=== PATIENT | female | born 1970 | race Caucasian/White ===

== ENCOUNTER 2017-07-31 03:15 | Emergency (ER) | payer OTHER ==
[~2017-07-31] VITALS: Ht 160 cm; Wt 56.2 kg
[~2017-07-31 03:15] MED LIST: ACET500 PO; ALBU90OI INH; AMIT10 PO; AMIT50 PO; AMLO5 PO; ATOR20 PO; BENZ100A PO; BUSP10 PO; BUSP5 PO; Benicar PO; CITA20 PO; CLON.1 PO; CLON2 PO; CRUTCH4 USE; CYCL10 PO; Colace100 MG PO; DEXGUASY PO; DULO30 PO; ELIQUIS5 MG PO; ESCI10 PO; FETZIMA120 MG PO; Ferrous Sulfat325 M2 PO; GABA300 PO; HYDACE5 PO; HYDCHL12.5 PO; HYDCHL25 PO; HYDCOR1TO TOP; HYDMOR2 PO; HYDPAM25 PO; HYDR-86 PO; IBUP800 PO; Imitrex PO; LAMO100 PO; LAMO25 PO; LOPE2C PO; LORA.5 PO; LORA1 PO; LOSA25 PO; LOXA10 PO; MAGNESIUM OTC PO; MEROPENEM1000 MG; METO50 PO; METO50ER PO; MIRT15 PO; Magnesium Gluc500 MG PO; NAPR500 PO; OLME20 PO; OLME20-12. PO; OMEP40CA12 PO; ONDA4 PO; OTC IRON PO; Omeprazole20 M1 PO; POTCHL20ER PO; PRED20 PO; PREG200 PO; PROBIOTIC1 EAC1 PO; PROM25 PO; PROM25S PR; PROP80ER PO; Prilosec20 MG PO; QUET100 PO; SAPHRIS10 MG SL; SUCR1 PO; SUCR1SU PO; SUMA25 PO; TIZANIDINE HCL2 MG PO; TIZANIDINE HCL4 MG PO; TRAM50 PO; VENL37.5ER PO; VICODIN HP 10-1 EACH PO; WARF2.5 PO; WARF3 PO; WARF5 PO; XARELTO10 MG PO; ZIPR40 PO; ZOLP10 PO; Zanaflex2 M1 PO; Zanaflex4 MG PO; [UNRECOGNIZED DRUG - CODE] PO; [UNRECOGNIZED DRUG - OTHER]; [UNRECOGNIZED DRUG - REMARK]; [UNRECOGNIZED DRUG - REMARK]; [UNRECOGNIZED DRUG - REMARK]
[2017-07-31 04:16] LABS: BASOPHILS ABSOLUTE AUTO 0.04 K/mm3 (0.00-0.23); BASOPHILS PERCENT AUTO 1 % (0-2); EOSINOPHILS ABSOLUTE AUTO 0.11 K/mm3 (0.00-0.68); EOSINOPHILS PERCENT AUTO 1 % (0-6); Hematocrit 33.6 % (33.0-51.0); Hemoglobin 10.9 g/dL (11.5-16.0); IMMATURE GRAN ABSOLUTE AUTO 0.05 K/mm3 (0.00-0.10); IMMATURE GRAN PERCENT AUTO 1 % (0-1); LYMPHOCYTES ABSOLUTE AUTO 2.69 K/mm3 (0.84-5.20); LYMPHOCYTES PERCENT AUTO 33 % (21-46); MONOCYTES ABSOLUTE AUTO 0.58 K/mm3 (0.16-1.47); MONOCYTES PERCENT AUTO 7 % (4-13); Mean Corpuscular HGB 28.1 pg (26.0-34.0); Mean Corpuscular HGB Conc 32.4 g/dL (31.5-36.5); Mean Corpuscular Volume 87 fL (80-100); NEUTROPHILS ABSOLUTE AUTO 4.73 K/mm3 (1.96-9.15); NEUTROPHILS PERCENT AUTO 58 % (41-73); Platelet Count 267 K/mm3 (150-400); RDW Coefficient Variation 17.4 % (11.7-14.2); RDW Standard Deviation 54.7 fL (35.1-46.3); Red Blood Cell Count 3.88 M/mm3 (3.80-5.20)
[2017-07-31 04:44] LABS: Alanine Aminotransfer (ALT/SGP 18 U/L (12-78); Albumin, Blood 3.3 g/dL (3.4-5.0); Albumin/Globulin Ratio 0.8 (0.8-1.8); Alk Phos 136 U/L (50-136); Anion Gap 11 mmol/L (6-16); Aspartate Aminotrans (AST/SGOT 30 U/L (12-37); Bilirubin, Total 0.6 mg/dL (0.1-1.0); Blood Urea Nitrogen 11 mg/dL (8-24); Bun/Creatinine Ratio 17.9 (12.0-20.0); CO2, Blood 23 mmol/L (21-32); Calcium, Blood 8.3 mg/dL (8.5-10.1); Chloride, Blood 108 mmol/L (98-108); Creatinine, Blood 0.62 mg/dL (0.40-1.00); Globulin, Blood 4.3 g/dL (2.2-4.0); Glomerular Filtration Rate >60 (60-); Glucose, Blood 98 mg/dL (70-99); Potassium, Blood 3.8 mmol/L (3.5-5.5); Sodium, Blood 142 mmol/L (136-145); Total Protein, Blood 7.6 g/dL (6.4-8.2); Troponin I <0.015 ng/mL (0.000-0.040)
[2017-11-22] MEDS ORDERED: Doxepin HC10 MG/1 ML PO (11:23)
[2017-12-21] MEDS ORDERED: LOSARTAN POTAS100 MG PO (23:38)
[2017-12-21] MEDS ORDERED: SERT100 PO (23:41)
[2017-12-21] MEDS ORDERED: MAGOXI400 PO (23:41)
[2017-12-21] MEDS ORDERED: Zanaflex4 M1 PO (23:44)
[2017-12-21] MEDS ORDERED: RIZATRIPTAN10 M1 PO (23:46)
[2017-12-21] MEDS ORDERED: DOXE10 PO (23:48)
[2017-12-22] MEDS ORDERED: ELIQUIS5 MG PO (06:59)
== END 2017-07-31 06:10 | disposition home or self-care (01) ==
LOC: ER 03:15
PROVIDERS: Emergency Medicine
DX: I10 Essential (primary) hypertension (principal); R07.9 Chest pain, unspecified; Z79.899 Other long term (current) drug therapy; Z86.711 Personal history of pulmonary embolism; F32.9 Major depressive disorder, single episode, unspecified; F41.9 Anxiety disorder, unspecified; Z98.84 Bariatric surgery status; Z95.0 Presence of cardiac pacemaker; Z98.51 Tubal ligation status
CPT/HCPCS: 36415; 71046; 80053; 83880; 84484; 85025; 93005; 93010; 96374; 96375; 99284; J0360; J2405

== ENCOUNTER 2017-09-07 16:48 | Inpatient (IN) | payer OTHER ==
[~2017-09-07] VITALS: Ht 154.9 cm; Wt 61.4 kg
[2017-09-07 17:22] LABS: BASOPHILS ABSOLUTE AUTO 0.02 K/mm3 (0.00-0.23); BASOPHILS PERCENT AUTO 0 % (0-2); EOSINOPHILS ABSOLUTE AUTO 0.27 K/mm3 (0.00-0.68); EOSINOPHILS PERCENT AUTO 4 % (0-6); Hematocrit 31.5 % (33.0-51.0); Hemoglobin 9.9 g/dL (11.5-16.0); IMMATURE GRAN ABSOLUTE AUTO 0.01 K/mm3 (0.00-0.10); IMMATURE GRAN PERCENT AUTO 0 % (0-1); LYMPHOCYTES ABSOLUTE AUTO 2.58 K/mm3 (0.84-5.20); LYMPHOCYTES PERCENT AUTO 42 % (21-46); MONOCYTES ABSOLUTE AUTO 0.36 K/mm3 (0.16-1.47); MONOCYTES PERCENT AUTO 6 % (4-13); Mean Corpuscular HGB 28.5 pg (26.0-34.0); Mean Corpuscular HGB Conc 31.4 g/dL (31.5-36.5); Mean Corpuscular Volume 91 fL (80-100); Mean Platelet Volume 9.5 fL (9.1-12.4); NEUTROPHILS ABSOLUTE AUTO 2.95 K/mm3 (1.96-9.15); NEUTROPHILS PERCENT AUTO 48 % (41-73); Platelet Count 121 K/mm3 (150-400); RDW Coefficient Variation 18.7 % (11.7-14.2); RDW Standard Deviation 60.9 fL (35.1-46.3); Red Blood Cell Count 3.47 M/mm3 (3.80-5.20); White Blood Cell Count 6.19 K/mm3 (4.00-11.30)
[2017-09-07 17:43] LABS: Ethanol (Alcohol), Blood, Med 277 mg/dL; Salicylate 2.8 mg/dL (2.8-20.0)
[2017-09-07 17:47] LABS: Alanine Aminotransfer (ALT/SGP 25 U/L (12-78); Albumin, Blood 3.1 g/dL (3.4-5.0); Albumin/Globulin Ratio 0.8 (0.8-1.8); Alk Phos 125 U/L (50-136); Anion Gap 12 mmol/L (6-16); Aspartate Aminotrans (AST/SGOT 47 U/L (12-37); Bilirubin, Total 0.3 mg/dL (0.1-1.0); Blood Urea Nitrogen 18 mg/dL (8-24); CO2, Blood 19 mmol/L (21-32); Calcium, Blood 7.7 mg/dL (8.5-10.1); Chloride, Blood 110 mmol/L (98-108); Creatinine, Blood 0.78 mg/dL (0.40-1.00); Globulin, Blood 3.9 g/dL (2.2-4.0); Glomerular Filtration Rate >60 (60-); Glucose, Blood 143 mg/dL (70-99); Potassium, Blood 3.7 mmol/L (3.5-5.5); Sodium, Blood 141 mmol/L (136-145)
[2017-09-07 17:52] LABS: Acetaminophen, Random <2.0 ug/mL (10.0-30.0)
[2017-09-07 18:16] LABS: Source, Urine Catheter
[2017-09-07 18:19] LABS: Bilirubin, Urine Neg (Neg); Blood, Urine Neg (Neg); Glucose Qualitative, Urine Neg (Neg); Ketones, Urine 1+ (Neg); Leukocyte Esterase, Urine Neg (Neg); Nitrite, Urine Neg (Neg); Protein, Urine 1+ (Neg); Urobilinogen, Urine NORM (Normal); pH, Urine 6.5 (5.0-8.0)
[2017-09-07 18:27] LABS: Appearance, Urine Clear (Clear); Color, Urine Yellow (P-Yellow)
[2017-09-07 18:41] LABS: U Amphetamine Screen Not Detected; U Barbituate Screen Not Detected; U Benzodiazapine Screen Not Detected; U Buprenorphine Screen Not Detected; U Cannabinoids Screen Not Detected; U Cocaine Screen Not Detected; U Methadone Screen Not Detected; U Methamphetamine Screen Not Detected; U Opiates Screen Not Detected; U Oxycodone Screen Not Detected; U Phencyclidine Screen Not Detected; U Propoxyphene Screen Not Detected
[2017-09-07 18:56] LABS: Troponin I <0.015 ng/mL (0.000-0.040)
[2017-09-07 20:55] LABS: Alanine Aminotransfer (ALT/SGP 21 U/L (12-78); Albumin, Blood 2.9 g/dL (3.4-5.0); Albumin/Globulin Ratio 0.8 (0.8-1.8); Alk Phos 121 U/L (50-136); Anion Gap 13 mmol/L (6-16); Aspartate Aminotrans (AST/SGOT 41 U/L (12-37); Bilirubin, Total 0.3 mg/dL (0.1-1.0); Blood Urea Nitrogen 16 mg/dL (8-24); Bun/Creatinine Ratio 23.7 (12.0-20.0); CO2, Blood 17 mmol/L (21-32); Calcium, Blood 7.4 mg/dL (8.5-10.1); Chloride, Blood 112 mmol/L (98-108); Creatinine, Blood 0.68 mg/dL (0.40-1.00); Globulin, Blood 3.7 g/dL (2.2-4.0); Glomerular Filtration Rate >60 (60-); Glucose, Blood 132 mg/dL (70-99); Magnesium, Blood 1.8 mg/dL (1.6-2.4); Phosphorus, Blood 2.8 mg/dL (2.5-4.9); Potassium, Blood 3.7 mmol/L (3.5-5.5); Salicylate 2.4 mg/dL (2.8-20.0); Sodium, Blood 142 mmol/L (136-145); Total Protein, Blood 6.6 g/dL (6.4-8.2)
[2017-09-07 20:59] LABS: Acetaminophen, Random <2.0 ug/mL (10.0-30.0)
[2017-09-08 04:22] LABS: BASOPHILS ABSOLUTE AUTO 0.02 K/mm3 (0.00-0.23); BASOPHILS PERCENT AUTO 0 % (0-2); EOSINOPHILS ABSOLUTE AUTO 0.17 K/mm3 (0.00-0.68); EOSINOPHILS PERCENT AUTO 3 % (0-6); Hematocrit 26.3 % (33.0-51.0); Hemoglobin 8.3 g/dL (11.5-16.0); IMMATURE GRAN ABSOLUTE AUTO 0.01 K/mm3 (0.00-0.10); IMMATURE GRAN PERCENT AUTO 0 % (0-1); LYMPHOCYTES ABSOLUTE AUTO 1.68 K/mm3 (0.84-5.20); LYMPHOCYTES PERCENT AUTO 34 % (21-46); MONOCYTES ABSOLUTE AUTO 0.35 K/mm3 (0.16-1.47); MONOCYTES PERCENT AUTO 7 % (4-13); Mean Corpuscular HGB 28.9 pg (26.0-34.0); Mean Corpuscular HGB Conc 31.6 g/dL (31.5-36.5); Mean Corpuscular Volume 92 fL (80-100); Mean Platelet Volume 9.5 fL (9.1-12.4); NEUTROPHILS PERCENT AUTO 55 % (41-73); Platelet Count 88 K/mm3 (150-400); RDW Coefficient Variation 18.6 % (11.7-14.2); RDW Standard Deviation 62.1 fL (35.1-46.3); Red Blood Cell Count 2.87 M/mm3 (3.80-5.20); White Blood Cell Count 4.93 K/mm3 (4.00-11.30)
[2017-09-08 04:38] LABS: Magnesium, Blood 1.7 mg/dL (1.6-2.4); Phosphorus, Blood 2.6 mg/dL (2.5-4.9)
[2017-09-08 19:22] LABS: Alanine Aminotransfer (ALT/SGP 20 U/L (12-78); Albumin, Blood 3.2 g/dL (3.4-5.0); Albumin/Globulin Ratio 0.9 (0.8-1.8); Alk Phos 125 U/L (50-136); Anion Gap 10 mmol/L (6-16); Aspartate Aminotrans (AST/SGOT 33 U/L (12-37); Bilirubin, Total 0.6 mg/dL (0.1-1.0); Blood Urea Nitrogen 15 mg/dL (8-24); Bun/Creatinine Ratio 24.1 (12.0-20.0); CO2, Blood 18 mmol/L (21-32); Calcium, Blood 8.4 mg/dL (8.5-10.1); Chloride, Blood 109 mmol/L (98-108); Creatinine, Blood 0.62 mg/dL (0.40-1.00); Globulin, Blood 3.7 g/dL (2.2-4.0); Glomerular Filtration Rate >60 (60-); Glucose, Blood 135 mg/dL (70-99); Potassium, Blood 3.6 mmol/L (3.5-5.5); Sodium, Blood 137 mmol/L (136-145); Total Protein, Blood 6.9 g/dL (6.4-8.2)
[2017-09-09 06:01] LABS: BASOPHILS ABSOLUTE AUTO 0.02 K/mm3 (0.00-0.23); BASOPHILS PERCENT AUTO 1 % (0-2); EOSINOPHILS ABSOLUTE AUTO 0.12 K/mm3 (0.00-0.68); EOSINOPHILS PERCENT AUTO 4 % (0-6); Hematocrit 31.9 % (33.0-51.0); IMMATURE GRAN ABSOLUTE AUTO 0.01 K/mm3 (0.00-0.10); IMMATURE GRAN PERCENT AUTO 0 % (0-1); LYMPHOCYTES ABSOLUTE AUTO 1.43 K/mm3 (0.84-5.20); LYMPHOCYTES PERCENT AUTO 50 % (21-46); MONOCYTES ABSOLUTE AUTO 0.28 K/mm3 (0.16-1.47); MONOCYTES PERCENT AUTO 10 % (4-13); Mean Corpuscular HGB 28.6 pg (26.0-34.0); Mean Corpuscular HGB Conc 31.3 g/dL (31.5-36.5); Mean Corpuscular Volume 91 fL (80-100); Mean Platelet Volume 10.2 fL (9.1-12.4); NEUTROPHILS ABSOLUTE AUTO 0.99 K/mm3 (1.96-9.15); NEUTROPHILS PERCENT AUTO 35 % (41-73); Platelet Count 88 K/mm3 (150-400); RDW Coefficient Variation 18.9 % (11.7-14.2); RDW Standard Deviation 62.8 fL (35.1-46.3); White Blood Cell Count 2.85 K/mm3 (4.00-11.30)
[2017-09-09 06:19] LABS: Magnesium, Blood 1.8 mg/dL (1.6-2.4); Phosphorus, Blood 2.8 mg/dL (2.5-4.9)
[2017-09-09] MEDS ORDERED: SERT50 PO (13:29)
[2017-11-22] MEDS ORDERED: Doxepin HC10 MG/1 ML PO (11:23)
[2017-12-21] MEDS ORDERED: LOSARTAN POTAS100 MG PO (23:38)
[2017-12-21] MEDS ORDERED: SERT100 PO (23:41)
[2017-12-21] MEDS ORDERED: MAGOXI400 PO (23:41)
[2017-12-21] MEDS ORDERED: Zanaflex4 M1 PO (23:44)
[2017-12-21] MEDS ORDERED: RIZATRIPTAN10 M1 PO (23:46)
[2017-12-21] MEDS ORDERED: DOXE10 PO (23:48)
[2017-12-22] MEDS ORDERED: ELIQUIS5 MG PO (06:59)
== END 2017-09-09 13:35 | disposition home or self-care (01) | DRG 917 ==
LOC: ER 16:48 → ICUW 18:39 → MEDS 18:39 → ICUE 20:21 → MEDS 09-08 13:26
PROVIDERS: Emergency Medicine; Family Medicine
PROC: 3E0234Z Introduction of Serum, Toxoid and Vaccine into Muscle, Percutaneous Approach (ICD-10-PCS; principal; 2017-09-08)
DX: T42.8X2A Poisoning by antiparkinsonism drugs and other central muscle-tone depressants, intentional self-harm, initial encounter (principal); G92 Toxic encephalopathy; D68.2 Hereditary deficiency of other clotting factors; T46.5X2A Poisoning by other antihypertensive drugs, intentional self-harm, initial encounter; Z23 Encounter for immunization; T51.0X2A Toxic effect of ethanol, intentional self-harm, initial encounter; Z86.711 Personal history of pulmonary embolism; F43.10 Post-traumatic stress disorder, unspecified; F32.9 Major depressive disorder, single episode, unspecified; I10 Essential (primary) hypertension; M54.9 Dorsalgia, unspecified; G89.29 Other chronic pain; D64.9 Anemia, unspecified
CPT/HCPCS: 36415; 51702; 71045; 80053; 81025; 82947; 83735; 84100; 84443; 84484; 85025; 93005; 93010; 96361; 96374; 99285; G0480; J0360; J2310; J2405; J7030; P9612; Q2038

== ENCOUNTER 2017-10-03 20:59 | Observation (INO) | payer OTHER ==
[~2017-10-03] VITALS: Ht 160 cm; Wt 59.0 kg
[~2017-10-03 20:59] MED LIST changes: +SERT50 PO
[2017-10-03 21:34] LABS: BASOPHILS ABSOLUTE AUTO 0.02 K/mm3 (0.00-0.23); BASOPHILS PERCENT AUTO 0 % (0-2); EOSINOPHILS ABSOLUTE AUTO 0.04 K/mm3 (0.00-0.68); EOSINOPHILS PERCENT AUTO 1 % (0-6); Hematocrit 36.1 % (33.0-51.0); Hemoglobin 11.5 g/dL (11.5-16.0); IMMATURE GRAN ABSOLUTE AUTO 0.01 K/mm3 (0.00-0.10); IMMATURE GRAN PERCENT AUTO 0 % (0-1); LYMPHOCYTES ABSOLUTE AUTO 1.98 K/mm3 (0.84-5.20); LYMPHOCYTES PERCENT AUTO 43 % (21-46); MONOCYTES PERCENT AUTO 4 % (4-13); Mean Corpuscular HGB 28.4 pg (26.0-34.0); Mean Corpuscular HGB Conc 31.9 g/dL (31.5-36.5); Mean Corpuscular Volume 89 fL (80-100); Mean Platelet Volume 9.1 fL (9.1-12.4); NEUTROPHILS ABSOLUTE AUTO 2.36 K/mm3 (1.96-9.15); NEUTROPHILS PERCENT AUTO 51 % (41-73); Platelet Count 85 K/mm3 (150-400); RDW Coefficient Variation 18.4 % (11.7-14.2); RDW Standard Deviation 59.2 fL (35.1-46.3); Red Blood Cell Count 4.05 M/mm3 (3.80-5.20); White Blood Cell Count 4.61 K/mm3 (4.00-11.30)
[2017-10-03 21:51] LABS: Alanine Aminotransfer (ALT/SGP 35 U/L (12-78); Albumin, Blood 3.8 g/dL (3.4-5.0); Albumin/Globulin Ratio 0.8 (0.8-1.8); Alk Phos 162 U/L (50-136); Anion Gap 11 mmol/L (6-16); Aspartate Aminotrans (AST/SGOT 59 U/L (12-37); Bilirubin, Total 0.2 mg/dL (0.1-1.0); Blood Urea Nitrogen 9 mg/dL (8-24); Bun/Creatinine Ratio 15.2 (12.0-20.0); CO2, Blood 24 mmol/L (21-32); Calcium, Blood 8.2 mg/dL (8.5-10.1); Chloride, Blood 114 mmol/L (98-108); Creatinine, Blood 0.59 mg/dL (0.40-1.00); Globulin, Blood 4.5 g/dL (2.2-4.0); Glomerular Filtration Rate >60 (60-); Glucose, Blood 97 mg/dL (70-99); Potassium, Blood 3.1 mmol/L (3.5-5.5); Salicylate 3.8 mg/dL (2.8-20.0); Sodium, Blood 149 mmol/L (136-145); Total Protein, Blood 8.3 g/dL (6.4-8.2)
[2017-10-03 22:06] LABS: Acetaminophen, Random <2.0 ug/mL (10.0-30.0); Ethanol (Alcohol), Blood, Med 343 mg/dL
[2017-10-04 02:25] LABS: Source, Urine Clean Catch
[2017-10-04 02:30] LABS: Bilirubin, Urine Neg (Neg); Blood, Urine Neg (Neg); Glucose Qualitative, Urine Neg (Neg); Ketones, Urine Neg (Neg); Leukocyte Esterase, Urine Neg (Neg); Nitrite, Urine Neg (Neg); Protein, Urine 1+ (Neg); Urobilinogen, Urine NORM (Normal)
[2017-10-04 02:36] LABS: Amorphous Light (0-Heavy); Appearance, Urine Hazy (Clear); Bacteria Many /hpf; Color, Urine Yellow (P-Yellow); Mucus Light (0-Heavy); Red Blood Cells, Urine Not Seen /hpf (0-2); Squamous Epithelial Cells Mod /hpf (Few)
[2017-10-04 02:56] LABS: U Amphetamine Screen Not Detected; U Barbituate Screen Not Detected; U Benzodiazapine Screen Not Detected; U Buprenorphine Screen Not Detected; U Cannabinoids Screen Not Detected; U Cocaine Screen Not Detected; U Methadone Screen Not Detected; U Methamphetamine Screen Not Detected; U Opiates Screen Not Detected; U Oxycodone Screen Not Detected; U Phencyclidine Screen Not Detected; U Propoxyphene Screen Not Detected
== END 2017-10-04 09:40 | disposition home or self-care (01) ==
LOC: ER 20:59 → EOR 21:00
PROVIDERS: Emergency Medicine
DX: T14.91XA Suicide attempt, initial encounter (principal); F10.129 Alcohol abuse with intoxication, unspecified; F32.9 Major depressive disorder, single episode, unspecified; Z79.899 Other long term (current) drug therapy; Y90.8 Blood alcohol level of 240 mg/100 ml or more
CPT/HCPCS: 36415; 80053; 81001; 81025; 84443; 85025; 87086; 93005; 93010; 99285; G0378; G0480; Q3014

== ENCOUNTER 2017-11-22 10:40 | Emergency (ER) | payer OTHER ==
[~2017-11-22] VITALS: Ht 162.6 cm; Wt 56.7 kg
[2017-11-22] MEDS ORDERED: SILENOR3 MG PO (11:23)
[2017-11-22] MEDS ORDERED: QUETIAPINE FUM200 MG PO (11:24)
[2017-11-22] MEDS ORDERED: TIZANIDINE HCL2 MG PO (11:24)
[2017-11-22] MEDS ORDERED: Primalev 10-301 EACH (11:25)
== END 2017-11-22 13:10 | disposition home or self-care (01) ==
LOC: ER 10:40
DX: S01.01XA Laceration without foreign body of scalp, initial encounter (principal); W22.8XXA Striking against or struck by other objects, initial encounter; G43.909 Migraine, unspecified, not intractable, without status migrainosus; F43.10 Post-traumatic stress disorder, unspecified; F32.9 Major depressive disorder, single episode, unspecified; F41.9 Anxiety disorder, unspecified; I10 Essential (primary) hypertension; Z86.73 Personal history of transient ischemic attack (TIA), and cerebral infarction without residual deficits; Z79.899 Other long term (current) drug therapy; Z79.891 Long term (current) use of opiate analgesic
CPT/HCPCS: 12001; 70450; 90471; 90714; 99284

== ENCOUNTER 2017-11-26 22:19 | Observation (INO) | payer OTHER ==
[~2017-11-26] VITALS: Ht 162.6 cm; Wt 57.1 kg
[~2017-11-26 22:19] MED LIST changes: +Primalev 10-301 EACH; +QUETIAPINE FUM200 MG PO; +SILENOR3 MG PO
[2017-11-26 23:08] LABS: Source, Urine Voided
[2017-11-26 23:19] LABS: Bilirubin, Urine Neg (Neg); Blood, Urine 1+ (Neg); Glucose Qualitative, Urine Neg (Neg); Ketones, Urine Neg (Neg); Leukocyte Esterase, Urine Neg (Neg); Nitrite, Urine Neg (Neg); Protein, Urine Neg (Neg); Specific Gravity, Urine 1.005 (1.003-1.022); Urobilinogen, Urine NORM (Normal)
[2017-11-26 23:21] LABS: BASOPHILS ABSOLUTE AUTO 0.05 K/mm3 (0.00-0.23); BASOPHILS PERCENT AUTO 1 % (0-2); EOSINOPHILS ABSOLUTE AUTO 0.05 K/mm3 (0.00-0.68); EOSINOPHILS PERCENT AUTO 1 % (0-6); Hematocrit 32.8 % (33.0-51.0); Hemoglobin 10.7 g/dL (11.5-16.0); IMMATURE GRAN ABSOLUTE AUTO 0.01 K/mm3 (0.00-0.10); IMMATURE GRAN PERCENT AUTO 0 % (0-1); LYMPHOCYTES ABSOLUTE AUTO 2.08 K/mm3 (0.84-5.20); LYMPHOCYTES PERCENT AUTO 36 % (21-46); MONOCYTES ABSOLUTE AUTO 0.57 K/mm3 (0.16-1.47); MONOCYTES PERCENT AUTO 10 % (4-13); Mean Corpuscular HGB 29.3 pg (26.0-34.0); Mean Corpuscular HGB Conc 32.6 g/dL (31.5-36.5); Mean Corpuscular Volume 90 fL (80-100); Mean Platelet Volume 9.1 fL (9.1-12.4); NEUTROPHILS ABSOLUTE AUTO 3.03 K/mm3 (1.96-9.15); NEUTROPHILS PERCENT AUTO 52 % (41-73); Platelet Count 190 K/mm3 (150-400); RDW Coefficient Variation 19.2 % (11.7-14.2); RDW Standard Deviation 63.5 fL (35.1-46.3); Red Blood Cell Count 3.65 M/mm3 (3.80-5.20); White Blood Cell Count 5.79 K/mm3 (4.00-11.30)
[2017-11-26 23:23] LABS: Appearance, Urine Clear (Clear); Color, Urine Yellow (P-Yellow)
[2017-11-26 23:24] LABS: Bacteria Not Seen /hpf; Red Blood Cells, Urine 0-2 /hpf (0-2); Squamous Epithelial Cells Not Seen /hpf (Few); White Blood Cells, Urine 0-2 /hpf (0-5)
[2017-11-26 23:29] LABS: U Amphetamine Screen Not Detected; U Barbituate Screen Not Detected; U Benzodiazapine Screen Not Detected; U Buprenorphine Screen Not Detected; U Cannabinoids Screen Not Detected; U Cocaine Screen Not Detected; U Methadone Screen Not Detected; U Methamphetamine Screen Not Detected; U Opiates Screen Not Detected; U Oxycodone Screen Not Detected; U Phencyclidine Screen Not Detected; U Propoxyphene Screen Not Detected
[2017-11-26 23:46] LABS: Alanine Aminotransfer (ALT/SGP 22 U/L (12-78); Albumin, Blood 3.4 g/dL (3.4-5.0); Albumin/Globulin Ratio 0.8 (0.8-1.8); Alk Phos 115 U/L (50-136); Anion Gap 8 mmol/L (6-16); Aspartate Aminotrans (AST/SGOT 33 U/L (12-37); Bilirubin, Total 0.2 mg/dL (0.1-1.0); Blood Urea Nitrogen 3 mg/dL (8-24); Bun/Creatinine Ratio 4.4 (12.0-20.0); CO2, Blood 26 mmol/L (21-32); Calcium, Blood 8.4 mg/dL (8.5-10.1); Chloride, Blood 113 mmol/L (98-108); Creatinine, Blood 0.68 mg/dL (0.40-1.00); Ethanol (Alcohol), Blood, Med 298 mg/dL; Globulin, Blood 4.1 g/dL (2.2-4.0); Glomerular Filtration Rate >60 (60-); Glucose, Blood 124 mg/dL (70-99); Salicylate 2.1 mg/dL (2.8-20.0); Sodium, Blood 147 mmol/L (136-145); Total Protein, Blood 7.5 g/dL (6.4-8.2)
[2017-11-26 23:47] LABS: Acetaminophen, Random <2.0 ug/mL (10.0-30.0)
== END 2017-11-27 01:24 | disposition left against medical advice (07) ==
LOC: ER 22:19 → EOR 22:20
PROVIDERS: Emergency Medicine
DX: S51.812A Laceration without foreign body of left forearm, initial encounter (principal); F10.129 Alcohol abuse with intoxication, unspecified; E87.6 Hypokalemia; F32.9 Major depressive disorder, single episode, unspecified; I10 Essential (primary) hypertension; F43.10 Post-traumatic stress disorder, unspecified; F41.9 Anxiety disorder, unspecified; Z86.711 Personal history of pulmonary embolism; Z79.899 Other long term (current) drug therapy; Z86.73 Personal history of transient ischemic attack (TIA), and cerebral infarction without residual deficits; X78.1XXA Intentional self-harm by knife, initial encounter; Y90.8 Blood alcohol level of 240 mg/100 ml or more
CPT/HCPCS: 80053; 81001; 81025; 84443; 85025; G0480

== ENCOUNTER 2017-12-02 09:31 | Inpatient (IN) | payer OTHER ==
[~2017-12-02] VITALS: Ht 160 cm; Wt 59.0 kg
[~2017-12-02 09:31] MED LIST changes: +Doxepin HC10 MG/1 ML PO; -SILENOR3 MG PO
[2017-12-02 10:13] LABS: BASOPHILS ABSOLUTE AUTO 0.03 K/mm3 (0.00-0.23); BASOPHILS PERCENT AUTO 0 % (0-2); EOSINOPHILS ABSOLUTE AUTO 0.01 K/mm3 (0.00-0.68); EOSINOPHILS PERCENT AUTO 0 % (0-6); Hematocrit 31.5 % (33.0-51.0); Hemoglobin 10.2 g/dL (11.5-16.0); IMMATURE GRAN ABSOLUTE AUTO 0.04 K/mm3 (0.00-0.10); IMMATURE GRAN PERCENT AUTO 1 % (0-1); LYMPHOCYTES ABSOLUTE AUTO 0.91 K/mm3 (0.84-5.20); LYMPHOCYTES PERCENT AUTO 11 % (21-46); MONOCYTES PERCENT AUTO 5 % (4-13); Mean Corpuscular HGB 29.2 pg (26.0-34.0); Mean Corpuscular HGB Conc 32.4 g/dL (31.5-36.5); Mean Corpuscular Volume 90 fL (80-100); Mean Platelet Volume 10.2 fL (9.1-12.4); NEUTROPHILS ABSOLUTE AUTO 6.91 K/mm3 (1.96-9.15); NEUTROPHILS PERCENT AUTO 83 % (41-73); Platelet Count 106 K/mm3 (150-400); RDW Standard Deviation 59.9 fL (35.1-46.3); Red Blood Cell Count 3.49 M/mm3 (3.80-5.20)
[2017-12-02 10:24] LABS: International Normalized Ratio 1.21; Prothrombin Time Results 12.7 Sec (9.7-11.5)
[2017-12-02 10:27] LABS: Alanine Aminotransfer (ALT/SGP 51 U/L (12-78); Albumin/Globulin Ratio 0.8 (0.8-1.8); Alk Phos 148 U/L (50-136); Anion Gap 10 mmol/L (6-16); Aspartate Aminotrans (AST/SGOT 71 U/L (12-37); Bilirubin, Total 0.5 mg/dL (0.1-1.0); Blood Urea Nitrogen 17 mg/dL (8-24); Bun/Creatinine Ratio 26.4 (12.0-20.0); CO2, Blood 26 mmol/L (21-32); Calcium, Blood 7.8 mg/dL (8.5-10.1); Chloride, Blood 102 mmol/L (98-108); Creatinine, Blood 0.64 mg/dL (0.40-1.00); Ethanol (Alcohol), Blood, Med <3 mg/dL; Globulin, Blood 3.7 g/dL (2.2-4.0); Glomerular Filtration Rate >60 (60-); Glucose, Blood 121 mg/dL (70-99); Potassium, Blood 3.1 mmol/L (3.5-5.5); Sodium, Blood 138 mmol/L (136-145); Total Protein, Blood 6.7 g/dL (6.4-8.2); Troponin I <0.015 ng/mL (0.000-0.040)
[2017-12-02 10:41] LABS: Blood, Urine 1+ (Neg); Glucose Qualitative, Urine Neg (Neg); Ketones, Urine 1+ (Neg); Leukocyte Esterase, Urine 1+ (Neg); Nitrite, Urine Neg (Neg); Protein, Urine 3+ (Neg); Specific Gravity, Urine 1.025 (1.003-1.022); Urobilinogen, Urine 1+ (Normal)
[2017-12-02 10:50] LABS: Appearance, Urine Cloudy (Clear); Bilirubin, Urine 1+ (Neg); Color, Urine Yellow (P-Yellow)
[2017-12-02 10:52] LABS: Granular Casts Rare /lpf (0)
[2017-12-02 10:53] LABS: Bacteria Mod /hpf; Hyaline Casts 0-2 /lpf (0-2); Mucus Mod (0-Heavy); Squamous Epithelial Cells Many /hpf (Few)
[2017-12-02 10:54] LABS: Red Blood Cells, Urine 0-2 /hpf (0-2)
[2017-12-02 13:07] LABS: C-Reactive Protein, High Sens. 47.4 mg/L (0.000-3.000)
[2017-12-03 04:50] LABS: BASOPHILS ABSOLUTE AUTO 0.01 K/mm3 (0.00-0.23); BASOPHILS PERCENT AUTO 0 % (0-2); EOSINOPHILS ABSOLUTE AUTO 0.01 K/mm3 (0.00-0.68); EOSINOPHILS PERCENT AUTO 0 % (0-6); Hematocrit 31.5 % (33.0-51.0); Hemoglobin 10.2 g/dL (11.5-16.0); IMMATURE GRAN ABSOLUTE AUTO 0.07 K/mm3 (0.00-0.10); IMMATURE GRAN PERCENT AUTO 1 % (0-1); LYMPHOCYTES ABSOLUTE AUTO 1.17 K/mm3 (0.84-5.20); LYMPHOCYTES PERCENT AUTO 9 % (21-46); MONOCYTES ABSOLUTE AUTO 0.38 K/mm3 (0.16-1.47); MONOCYTES PERCENT AUTO 3 % (4-13); Mean Corpuscular HGB 28.6 pg (26.0-34.0); Mean Corpuscular HGB Conc 32.4 g/dL (31.5-36.5); Mean Corpuscular Volume 88 fL (80-100); Mean Platelet Volume 10.3 fL (9.1-12.4); NEUTROPHILS ABSOLUTE AUTO 10.76 K/mm3 (1.96-9.15); NEUTROPHILS PERCENT AUTO 87 % (41-73); Platelet Count 77 K/mm3 (150-400); RDW Coefficient Variation 18.2 % (11.7-14.2); RDW Standard Deviation 58.6 fL (35.1-46.3); Red Blood Cell Count 3.57 M/mm3 (3.80-5.20)
[2017-12-03 05:12] LABS: Amylase, Blood 302 U/L (25-115); Magnesium, Blood 2.1 mg/dL (1.6-2.4)
[2017-12-03 05:20] LABS: BAND PERCENT MAN 11 % (0-8); BASOPHILS PERCENT MAN 0 % (0-2); EOSINOPHILS PERCENT MAN 0 % (0-6); LYMPHOCYTES ABSOLUTE MAN 1.11 K/mm3 (0.84-5.20); LYMPHOCYTES PERCENT MAN 9 % (21-46); MONOCYTES ABSOLUTE MAN 0.37 K/mm3 (0.16-1.47); MONOCYTES PERCENT MAN 3 % (4-13); NEUTROPHILS ABSOLUTE MAN 10.91 K/mm3 (1.96-9.15); SEG NEUTROPHILS PERCENT MAN 77 % (41-73); TOTAL CELLS COUNTED 100
[2017-12-03 05:25] LABS: Alanine Aminotransfer (ALT/SGP 33 U/L (12-78); Albumin, Blood 2.6 g/dL (3.4-5.0); Albumin/Globulin Ratio 0.7 (0.8-1.8); Alk Phos 124 U/L (50-136); Anion Gap 9 mmol/L (6-16); Aspartate Aminotrans (AST/SGOT 42 U/L (12-37); Bilirubin, Total 0.5 mg/dL (0.1-1.0); Blood Urea Nitrogen 12 mg/dL (8-24); Bun/Creatinine Ratio 19.7 (12.0-20.0); CO2, Blood 25 mmol/L (21-32); Chloride, Blood 103 mmol/L (98-108); Creatinine, Blood 0.61 mg/dL (0.40-1.00); Globulin, Blood 3.7 g/dL (2.2-4.0); Glomerular Filtration Rate >60 (60-); Glucose, Blood 85 mg/dL (70-99); Phosphorus, Blood 2.3 mg/dL (2.5-4.9); Potassium, Blood 3.3 mmol/L (3.5-5.5); Sodium, Blood 137 mmol/L (136-145); Total Protein, Blood 6.3 g/dL (6.4-8.2); Triglycerides 62 mg/dL (30-160)
[2017-12-03 06:01] LABS: Source, Urine Clean Catch
[2017-12-03 06:04] LABS: Bilirubin, Urine Neg (Neg); Blood, Urine 1+ (Neg); Glucose Qualitative, Urine Neg (Neg); Ketones, Urine Neg (Neg); Leukocyte Esterase, Urine Neg (Neg); Nitrite, Urine Neg (Neg); Protein, Urine 2+ (Neg); Specific Gravity, Urine 1.015 (1.003-1.022); Urobilinogen, Urine NORM (Normal)
[2017-12-03 06:16] LABS: Appearance, Urine Clear (Clear); Color, Urine Yellow (P-Yellow)
[2017-12-03 06:20] LABS: Bacteria Not Seen /hpf; Red Blood Cells, Urine 0-2 /hpf (0-2); Squamous Epithelial Cells Many /hpf (Few)
[2017-12-04 05:03] LABS: BASOPHILS ABSOLUTE AUTO 0.01 K/mm3 (0.00-0.23); BASOPHILS PERCENT AUTO 0 % (0-2); EOSINOPHILS ABSOLUTE AUTO 0.14 K/mm3 (0.00-0.68); EOSINOPHILS PERCENT AUTO 2 % (0-6); Hematocrit 26.6 % (33.0-51.0); Hemoglobin 8.6 g/dL (11.5-16.0); IMMATURE GRAN ABSOLUTE AUTO 0.01 K/mm3 (0.00-0.10); IMMATURE GRAN PERCENT AUTO 0 % (0-1); LYMPHOCYTES ABSOLUTE AUTO 1.25 K/mm3 (0.84-5.20); LYMPHOCYTES PERCENT AUTO 18 % (21-46); MONOCYTES ABSOLUTE AUTO 0.23 K/mm3 (0.16-1.47); MONOCYTES PERCENT AUTO 3 % (4-13); Mean Corpuscular HGB 29.4 pg (26.0-34.0); Mean Corpuscular HGB Conc 32.3 g/dL (31.5-36.5); Mean Platelet Volume 10.3 fL (9.1-12.4); NEUTROPHILS ABSOLUTE AUTO 5.36 K/mm3 (1.96-9.15); NEUTROPHILS PERCENT AUTO 77 % (41-73); Platelet Count 63 K/mm3 (150-400); RDW Coefficient Variation 18.3 % (11.7-14.2); Red Blood Cell Count 2.93 M/mm3 (3.80-5.20)
[2017-12-04 05:13] LABS: Mean Corpuscular Volume 91 fL (80-100)
[2017-12-04 05:24] LABS: Anion Gap 6 mmol/L (6-16); Blood Urea Nitrogen 9 mg/dL (8-24); Bun/Creatinine Ratio 18.3 (12.0-20.0); CO2, Blood 26 mmol/L (21-32); Calcium, Blood 7.8 mg/dL (8.5-10.1); Chloride, Blood 107 mmol/L (98-108); Creatinine, Blood 0.49 mg/dL (0.40-1.00); Glomerular Filtration Rate >60 (60-); Glucose, Blood 90 mg/dL (70-99); Phosphorus, Blood 1.6 mg/dL (2.5-4.9); Potassium, Blood 3.3 mmol/L (3.5-5.5); Sodium, Blood 139 mmol/L (136-145)
[2017-12-05 05:07] LABS: Hematocrit 24.9 % (33.0-51.0); Hemoglobin 7.8 g/dL (11.5-16.0); Mean Corpuscular HGB 28.7 pg (26.0-34.0); Mean Corpuscular HGB Conc 31.3 g/dL (31.5-36.5); Mean Corpuscular Volume 92 fL (80-100); Platelet Count 52 K/mm3 (150-400); RDW Coefficient Variation 18.8 % (11.7-14.2); RDW Standard Deviation 62.7 fL (35.1-46.3); Red Blood Cell Count 2.72 M/mm3 (3.80-5.20); White Blood Cell Count 3.21 K/mm3 (4.00-11.30)
[2017-12-05] MEDS ORDERED: METO5A PO (14:03)
== END 2017-12-05 13:20 | disposition home or self-care (01) | DRG 439 ==
LOC: ER 09:31 → MEDS 12:21
PROVIDERS: Emergency Medicine; Family Medicine; Internal Medicine
DX: K85.20 Alcohol induced acute pancreatitis without necrosis or infection (principal); F33.3 Major depressive disorder, recurrent, severe with psychotic symptoms; D68.51 Activated protein C resistance; Z98.84 Bariatric surgery status; Z86.711 Personal history of pulmonary embolism; E87.6 Hypokalemia; E83.42 Hypomagnesemia; E83.51 Hypocalcemia; J44.9 Chronic obstructive pulmonary disease, unspecified; F43.10 Post-traumatic stress disorder, unspecified; D63.8 Anemia in other chronic diseases classified elsewhere; D69.6 Thrombocytopenia, unspecified; F10.10 Alcohol abuse, uncomplicated; E83.39 Other disorders of phosphorus metabolism; Z86.718 Personal history of other venous thrombosis and embolism
CPT/HCPCS: 36415; 74018; 74022; 76700; 76705; 80048; 80053; 81001; 82150; 82330; 83690; 83735; 84100; 84478; 84484; 85025; 85027; 85610; 86141; 87086; 93005; 93010; 93970; 96365; 96366; 96367; 96368; 96375; 96376; 99285; C9113; G0480; J0360; J0780; J2185; J3010; J3411; J3475; J7030; J7042; J7060

== ENCOUNTER 2017-12-19 14:16 | Emergency (ER) | payer OTHER ==
[~2017-12-19] VITALS: Ht 160 cm; Wt 54.4 kg
[~2017-12-19 14:16] MED LIST changes: +METO5A PO
[2017-12-19] MEDS ORDERED: CHLO25 PO (15:18)
[2017-12-19] MEDS ORDERED: DOXE10 PO (22:58)
[2017-12-21] MEDS ORDERED: LOSARTAN POTAS100 MG PO (23:38)
[2017-12-21] MEDS ORDERED: SERT100 PO (23:41)
[2017-12-21] MEDS ORDERED: MAGOXI400 PO (23:41)
[2017-12-21] MEDS ORDERED: Zanaflex4 M1 PO (23:44)
[2017-12-21] MEDS ORDERED: RIZATRIPTAN10 M1 PO (23:46)
[2017-12-21] MEDS ORDERED: DOXE10 PO (23:48)
[2017-12-22] MEDS ORDERED: ELIQUIS5 MG PO (06:59)
== END 2017-12-19 15:33 | disposition home or self-care (01) ==
LOC: ER 14:16
DX: F10.10 Alcohol abuse, uncomplicated (principal); F32.9 Major depressive disorder, single episode, unspecified; F41.9 Anxiety disorder, unspecified; I10 Essential (primary) hypertension; Z79.899 Other long term (current) drug therapy
CPT/HCPCS: 99283

== ENCOUNTER 2017-12-19 19:12 | Observation (INO) | payer OTHER ==
[~2017-12-19] VITALS: Ht 160 cm; Wt 54.4 kg
[~2017-12-19 19:12] MED LIST changes: +CHLO25 PO
[2017-12-19 20:17] LABS: Source, Urine Voided
[2017-12-19 20:21] LABS: BASOPHILS ABSOLUTE AUTO 0.05 K/mm3 (0.00-0.23); BASOPHILS PERCENT AUTO 1 % (0-2); EOSINOPHILS ABSOLUTE AUTO 0.02 K/mm3 (0.00-0.68); EOSINOPHILS PERCENT AUTO 0 % (0-6); Hematocrit 37.8 % (33.0-51.0); Hemoglobin 11.9 g/dL (11.5-16.0); IMMATURE GRAN ABSOLUTE AUTO 0.01 K/mm3 (0.00-0.10); IMMATURE GRAN PERCENT AUTO 0 % (0-1); LYMPHOCYTES ABSOLUTE AUTO 2.32 K/mm3 (0.84-5.20); LYMPHOCYTES PERCENT AUTO 47 % (21-46); MONOCYTES ABSOLUTE AUTO 0.59 K/mm3 (0.16-1.47); MONOCYTES PERCENT AUTO 12 % (4-13); Mean Corpuscular HGB 28.4 pg (26.0-34.0); Mean Corpuscular HGB Conc 31.5 g/dL (31.5-36.5); Mean Corpuscular Volume 90 fL (80-100); Mean Platelet Volume 8.5 fL (9.1-12.4); NEUTROPHILS ABSOLUTE AUTO 1.96 K/mm3 (1.96-9.15); NEUTROPHILS PERCENT AUTO 40 % (41-73); Platelet Count 246 K/mm3 (150-400); RDW Coefficient Variation 19.6 % (11.7-14.2); RDW Standard Deviation 65.5 fL (35.1-46.3); Red Blood Cell Count 4.19 M/mm3 (3.80-5.20); White Blood Cell Count 4.95 K/mm3 (4.00-11.30)
[2017-12-19 20:22] LABS: Bilirubin, Urine Neg (Neg); Blood, Urine Neg (Neg); Glucose Qualitative, Urine Neg (Neg); Ketones, Urine Neg (Neg); Leukocyte Esterase, Urine Neg (Neg); Nitrite, Urine Neg (Neg); Protein, Urine Neg (Neg); Urobilinogen, Urine NORM (Normal)
[2017-12-19 20:26] LABS: Appearance, Urine Clear (Clear); Color, Urine Yellow (P-Yellow)
[2017-12-19 20:37] LABS: U Amphetamine Screen Not Detected; U Barbituate Screen Not Detected; U Benzodiazapine Screen Not Detected; U Buprenorphine Screen Not Detected; U Cannabinoids Screen Not Detected; U Cocaine Screen Not Detected; U Methadone Screen Not Detected; U Methamphetamine Screen Not Detected; U Opiates Screen Not Detected; U Oxycodone Screen Not Detected; U Phencyclidine Screen Not Detected; U Propoxyphene Screen Not Detected
[2017-12-19 20:44] LABS: Alanine Aminotransfer (ALT/SGP 74 U/L (12-78); Albumin, Blood 3.1 g/dL (3.4-5.0); Albumin/Globulin Ratio 0.6 (0.8-1.8); Alk Phos 176 U/L (50-136); Anion Gap 13 mmol/L (6-16); Aspartate Aminotrans (AST/SGOT 51 U/L (12-37); Bilirubin, Total 0.3 mg/dL (0.1-1.0); Blood Urea Nitrogen 5 mg/dL (8-24); Bun/Creatinine Ratio 6.8 (12.0-20.0); CO2, Blood 26 mmol/L (21-32); Calcium, Blood 8.6 mg/dL (8.5-10.1); Chloride, Blood 109 mmol/L (98-108); Creatinine, Blood 0.74 mg/dL (0.40-1.00); Globulin, Blood 4.8 g/dL (2.2-4.0); Glomerular Filtration Rate >60 (60-); Glucose, Blood 89 mg/dL (70-99); Potassium, Blood 3.2 mmol/L (3.5-5.5); Sodium, Blood 148 mmol/L (136-145); Total Protein, Blood 7.9 g/dL (6.4-8.2)
[2017-12-19 20:47] LABS: Salicylate <1.7 mg/dL (2.8-20.0)
[2017-12-19 20:48] LABS: Acetaminophen, Random <2.0 ug/mL (10.0-30.0); Ethanol (Alcohol), Blood, Med 319 mg/dL
[2017-12-19] MEDS ORDERED: DOXE10 PO (22:58)
[2017-12-21] MEDS ORDERED: LOSARTAN POTAS100 MG PO (23:38)
[2017-12-21] MEDS ORDERED: MAGOXI400 PO (23:41)
[2017-12-21] MEDS ORDERED: SERT100 PO (23:41)
[2017-12-21] MEDS ORDERED: Zanaflex4 M1 PO (23:44)
[2017-12-21] MEDS ORDERED: RIZATRIPTAN10 M1 PO (23:46)
[2017-12-21] MEDS ORDERED: DOXE10 PO (23:48)
[2017-12-22] MEDS ORDERED: ELIQUIS5 MG PO (06:59)
== END 2017-12-20 11:45 | disposition home or self-care (01) ==
LOC: ER 19:12 → EOR 19:13
PROVIDERS: Emergency Medicine
DX: F32.9 Major depressive disorder, single episode, unspecified (principal); F10.129 Alcohol abuse with intoxication, unspecified; F41.9 Anxiety disorder, unspecified; F43.10 Post-traumatic stress disorder, unspecified; G43.909 Migraine, unspecified, not intractable, without status migrainosus; I10 Essential (primary) hypertension; M54.9 Dorsalgia, unspecified; G89.29 Other chronic pain; Z79.899 Other long term (current) drug therapy
CPT/HCPCS: 36415; 80053; 81003; 81025; 84443; 85025; 99285; G0378; G0480; Q3014

== ENCOUNTER 2018-02-13 12:33 | Emergency (ER) | payer OTHER ==
[~2018-02-13] VITALS: Ht 162.6 cm; Wt 49.9 kg
[~2018-02-13 12:33] MED LIST changes: +DOXE10 PO; +LOSARTAN POTAS100 MG PO; +MAGOXI400 PO; +RIZATRIPTAN10 M1 PO; +SERT100 PO; +Zanaflex4 M1 PO
[2018-02-13 13:04] LABS: BASOPHILS ABSOLUTE AUTO 0.03 K/mm3 (0.00-0.23); BASOPHILS PERCENT AUTO 0 % (0-2); EOSINOPHILS ABSOLUTE AUTO 0.03 K/mm3 (0.00-0.68); EOSINOPHILS PERCENT AUTO 0 % (0-6); Hematocrit 35.9 % (33.0-51.0); Hemoglobin 11.5 g/dL (11.5-16.0); IMMATURE GRAN ABSOLUTE AUTO 0.02 K/mm3 (0.00-0.10); IMMATURE GRAN PERCENT AUTO 0 % (0-1); LYMPHOCYTES ABSOLUTE AUTO 1.59 K/mm3 (0.84-5.20); LYMPHOCYTES PERCENT AUTO 21 % (21-46); MONOCYTES ABSOLUTE AUTO 0.45 K/mm3 (0.16-1.47); MONOCYTES PERCENT AUTO 6 % (4-13); Mean Corpuscular HGB 29.6 pg (26.0-34.0); Mean Corpuscular Volume 92 fL (80-100); Mean Platelet Volume 9.2 fL (9.1-12.4); NEUTROPHILS ABSOLUTE AUTO 5.36 K/mm3 (1.96-9.15); NEUTROPHILS PERCENT AUTO 72 % (41-73); Platelet Count 179 K/mm3 (150-400); RDW Coefficient Variation 21.1 % (11.7-14.2); RDW Standard Deviation 70.9 fL (35.1-46.3); Red Blood Cell Count 3.89 M/mm3 (3.80-5.20); White Blood Cell Count 7.48 K/mm3 (4.00-11.30)
[2018-02-13 13:27] LABS: Alanine Aminotransfer (ALT/SGP 27 U/L (12-78); Albumin, Blood 2.4 g/dL (3.4-5.0); Albumin/Globulin Ratio 0.5 (0.8-1.8); Alk Phos 231 U/L (50-136); Anion Gap 8 mmol/L (6-16); Aspartate Aminotrans (AST/SGOT 43 U/L (12-37); Bilirubin, Total 0.5 mg/dL (0.1-1.0); Blood Urea Nitrogen 12 mg/dL (8-24); Bun/Creatinine Ratio 14.8 (12.0-20.0); CO2, Blood 28 mmol/L (21-32); Calcium, Blood 7.9 mg/dL (8.5-10.1); Chloride, Blood 103 mmol/L (98-108); Creatinine, Blood 0.81 mg/dL (0.40-1.00); Globulin, Blood 4.4 g/dL (2.2-4.0); Glomerular Filtration Rate >60 (60-); Glucose, Blood 119 mg/dL (70-99); Potassium, Blood 3.9 mmol/L (3.5-5.5); Sodium, Blood 139 mmol/L (136-145); Total Protein, Blood 6.8 g/dL (6.4-8.2)
[2018-02-13 13:28] LABS: Troponin I <0.015 ng/mL (0.000-0.040)
== END 2018-02-13 15:56 | disposition home or self-care (01) ==
LOC: ER 12:33
PROVIDERS: Internal Medicine
DX: R10.10 Upper abdominal pain, unspecified (principal); Z79.899 Other long term (current) drug therapy; F32.9 Major depressive disorder, single episode, unspecified; F41.9 Anxiety disorder, unspecified; I10 Essential (primary) hypertension; I48.91 Unspecified atrial fibrillation
CPT/HCPCS: 36415; 71046; 74177; 80053; 83690; 84484; 85025; 85379; 93005; 93010; 96361; 96374; 96375; 99285-25; C9113; J2405; J3490; J7120; Q9967

== ENCOUNTER 2018-03-11 10:26 | Observation (INO) | payer OTHER ==
[~2018-03-11] VITALS: Ht 162.6 cm; Wt 52.2 kg
[2018-03-11 11:20] LABS: BASOPHILS ABSOLUTE AUTO 0.02 K/mm3 (0.00-0.23); BASOPHILS PERCENT AUTO 1 % (0-2); EOSINOPHILS ABSOLUTE AUTO 0.05 K/mm3 (0.00-0.68); EOSINOPHILS PERCENT AUTO 2 % (0-6); Hematocrit 31.4 % (33.0-51.0); Hemoglobin 10.1 g/dL (11.5-16.0); IMMATURE GRAN ABSOLUTE AUTO 0.01 K/mm3 (0.00-0.10); IMMATURE GRAN PERCENT AUTO 0 % (0-1); LYMPHOCYTES ABSOLUTE AUTO 1.25 K/mm3 (0.84-5.20); LYMPHOCYTES PERCENT AUTO 39 % (21-46); MONOCYTES ABSOLUTE AUTO 0.33 K/mm3 (0.16-1.47); MONOCYTES PERCENT AUTO 10 % (4-13); Mean Corpuscular HGB 31.2 pg (26.0-34.0); Mean Corpuscular HGB Conc 32.2 g/dL (31.5-36.5); Mean Corpuscular Volume 97 fL (80-100); Mean Platelet Volume 8.8 fL (9.1-12.4); NEUTROPHILS ABSOLUTE AUTO 1.54 K/mm3 (1.96-9.15); NEUTROPHILS PERCENT AUTO 48 % (41-73); Platelet Count 161 K/mm3 (150-400); RDW Coefficient Variation 19.1 % (11.7-14.2); RDW Standard Deviation 68.8 fL (35.1-46.3); Red Blood Cell Count 3.24 M/mm3 (3.80-5.20)
[2018-03-11 11:35] LABS: International Normalized Ratio 1.16; Prothrombin Time Results 11.8 Sec (9.7-11.5)
[2018-03-11 11:41] LABS: Acetaminophen, Random 30.5 ug/mL (10.0-30.0); Alanine Aminotransfer (ALT/SGP 59 U/L (12-78); Albumin, Blood 2.3 g/dL (3.4-5.0); Albumin/Globulin Ratio 0.5 (0.8-1.8); Alk Phos 155 U/L (50-136); Anion Gap 10 mmol/L (6-16); Aspartate Aminotrans (AST/SGOT 33 U/L (12-37); Bilirubin, Total 0.2 mg/dL (0.1-1.0); Blood Urea Nitrogen 11 mg/dL (8-24); Bun/Creatinine Ratio 16.8 (12.0-20.0); CO2, Blood 26 mmol/L (21-32); Calcium, Blood 7.7 mg/dL (8.5-10.1); Chloride, Blood 105 mmol/L (98-108); Creatinine, Blood 0.66 mg/dL (0.40-1.00); Ethanol (Alcohol), Blood, Med 161 mg/dL; Globulin, Blood 4.2 g/dL (2.2-4.0); Glomerular Filtration Rate >60 (60-); Glucose, Blood 102 mg/dL (70-99); Potassium, Blood 3.4 mmol/L (3.5-5.5); Salicylate <1.7 mg/dL (2.8-20.0); Sodium, Blood 141 mmol/L (136-145); Total Protein, Blood 6.5 g/dL (6.4-8.2)
[2018-03-11 11:43] LABS: U Amphetamine Screen Not Detected; U Barbituate Screen Not Detected; U Benzodiazapine Screen Not Detected; U Buprenorphine Screen Not Detected; U Cannabinoids Screen Not Detected; U Cocaine Screen Not Detected; U Methadone Screen Not Detected; U Methamphetamine Screen Not Detected; U Opiates Screen Not Detected; U Oxycodone Screen DETECTED; U Phencyclidine Screen Not Detected; U Propoxyphene Screen Not Detected
[2018-03-11 13:15] LABS: Source, Urine Clean Catch
[2018-03-11 13:19] LABS: Bilirubin, Urine Neg (Neg); Blood, Urine Neg (Neg); Glucose Qualitative, Urine Neg (Neg); Ketones, Urine Neg (Neg); Leukocyte Esterase, Urine 1+ (Neg); Nitrite, Urine Neg (Neg); Protein, Urine Neg (Neg); Urobilinogen, Urine NORM (Normal)
[2018-03-11 13:38] LABS: Appearance, Urine Clear (Clear); Color, Urine Yellow (P-Yellow)
[2018-03-11 13:39] LABS: Bacteria Many /hpf; Red Blood Cells, Urine Not Seen /hpf (0-2); Squamous Epithelial Cells Many /hpf (Few)
== END 2018-03-12 08:04 | disposition home or self-care (01) ==
LOC: ER 10:26 → EOR 10:27
PROVIDERS: Emergency Medicine; Physician Assistant
DX: T40.2X2A Poisoning by other opioids, intentional self-harm, initial encounter (principal); F32.9 Major depressive disorder, single episode, unspecified; G43.909 Migraine, unspecified, not intractable, without status migrainosus; F41.9 Anxiety disorder, unspecified; F43.10 Post-traumatic stress disorder, unspecified; I10 Essential (primary) hypertension; M54.9 Dorsalgia, unspecified; Z79.899 Other long term (current) drug therapy; Z86.711 Personal history of pulmonary embolism
CPT/HCPCS: 80053; 81001; 85025; 85610; 85730; 87077; 87086; 87186; 93005; 93010; 96361; 96374; 96375; 96376; 99285-25; G0378; G0480; J0360; J2405; J7030; Q3014

== ENCOUNTER 2018-03-12 10:13 | Emergency (ER) | payer OTHER ==
[~2018-03-12] VITALS: Ht 162.6 cm; Wt 52.2 kg
[2018-03-12 12:47] LABS: Alanine Aminotransfer (ALT/SGP 48 U/L (12-78); Albumin, Blood 2.1 g/dL (3.4-5.0); Albumin/Globulin Ratio 0.5 (0.8-1.8); Alk Phos 165 U/L (50-136); Anion Gap 8 mmol/L (6-16); Aspartate Aminotrans (AST/SGOT 48 U/L (12-37); Bilirubin, Total 0.7 mg/dL (0.1-1.0); Blood Urea Nitrogen 16 mg/dL (8-24); CO2, Blood 26 mmol/L (21-32); Calcium, Blood 8.1 mg/dL (8.5-10.1); Chloride, Blood 106 mmol/L (98-108); Globulin, Blood 4.4 g/dL (2.2-4.0); Glomerular Filtration Rate >60 (60-); Glucose, Blood 96 mg/dL (70-99); Potassium, Blood 4.3 mmol/L (3.5-5.5); Sodium, Blood 140 mmol/L (136-145); Total Protein, Blood 6.5 g/dL (6.4-8.2); Troponin I <0.015 ng/mL (0.000-0.040)
[2018-03-12 13:02] LABS: BASOPHILS ABSOLUTE AUTO 0.04 K/mm3 (0.00-0.23); BASOPHILS PERCENT AUTO 1 % (0-2); EOSINOPHILS ABSOLUTE AUTO 0.01 K/mm3 (0.00-0.68); EOSINOPHILS PERCENT AUTO 0 % (0-6); Hematocrit 36.8 % (33.0-51.0); Hemoglobin 12.3 g/dL (11.5-16.0); IMMATURE GRAN ABSOLUTE AUTO 0.04 K/mm3 (0.00-0.10); IMMATURE GRAN PERCENT AUTO 1 % (0-1); LYMPHOCYTES ABSOLUTE AUTO 0.84 K/mm3 (0.84-5.20); LYMPHOCYTES PERCENT AUTO 25 % (21-46); MONOCYTES ABSOLUTE AUTO 0.37 K/mm3 (0.16-1.47); MONOCYTES PERCENT AUTO 11 % (4-13); Mean Corpuscular HGB 31.9 pg (26.0-34.0); Mean Corpuscular HGB Conc 33.4 g/dL (31.5-36.5); Mean Corpuscular Volume 96 fL (80-100); Mean Platelet Volume 9.7 fL (9.1-12.4); NEUTROPHILS ABSOLUTE AUTO 2.06 K/mm3 (1.96-9.15); NEUTROPHILS PERCENT AUTO 61 % (41-73); Platelet Count 129 K/mm3 (150-400); RDW Coefficient Variation 18.9 % (11.7-14.2); RDW Standard Deviation 67.7 fL (35.1-46.3); Red Blood Cell Count 3.85 M/mm3 (3.80-5.20); White Blood Cell Count 3.36 K/mm3 (4.00-11.30)
== END 2018-03-12 13:54 | disposition home or self-care (01) ==
LOC: ER 10:13
PROVIDERS: Emergency Medicine
DX: R07.9 Chest pain, unspecified (principal); Z72.89 Other problems related to lifestyle; G43.909 Migraine, unspecified, not intractable, without status migrainosus; F43.10 Post-traumatic stress disorder, unspecified; F32.9 Major depressive disorder, single episode, unspecified; F41.9 Anxiety disorder, unspecified; I10 Essential (primary) hypertension; Z86.73 Personal history of transient ischemic attack (TIA), and cerebral infarction without residual deficits; Z79.899 Other long term (current) drug therapy
CPT/HCPCS: 36415; 71046; 80053; 84484; 85025; 93005; 93010; J7030

== ENCOUNTER 2019-01-19 15:57 | Emergency (ER) | payer MEDICARE, OTHER ==
[~2019-01-19] VITALS: Ht 167.6 cm; Wt 70.3 kg
[~2019-01-19 15:57] MED LIST changes: -SERT100 PO; -Zanaflex4 M1 PO; +Zoloft25 MG PO
[2019-01-19] MEDS ORDERED: Zoloft25 MG PO (20:40)
[2019-01-19] MEDS ORDERED: CHLO25 PO (20:40)
[2019-02-02] MEDS ORDERED: HYDHCL25 PO (11:56)
[2019-02-02] MEDS ORDERED: OMEPRAZOLE MAGN20 M1 PO (11:57)
[2019-02-02] MEDS ORDERED: QUET200 (12:02)
[2019-02-02] MEDS ORDERED: ELIQUIS2.5 MG PO (12:02)
[2019-02-02] MEDS ORDERED: Lopressor 50 mg50 MG PO (12:03)
[2019-02-04] MEDS ORDERED: FERSU300 PO (14:37)
[2019-02-04] MEDS ORDERED: ONDA4 PO (14:37)
== END 2019-01-19 21:37 | disposition home or self-care (01) ==
LOC: ER 15:57
DX: F32.9 Major depressive disorder, single episode, unspecified (principal); F41.9 Anxiety disorder, unspecified; F10.20 Alcohol dependence, uncomplicated; I10 Essential (primary) hypertension; G43.909 Migraine, unspecified, not intractable, without status migrainosus; F43.10 Post-traumatic stress disorder, unspecified; Z79.899 Other long term (current) drug therapy; Z86.711 Personal history of pulmonary embolism
CPT/HCPCS: 36415; 93005; 93010; 96361; 96374; 99285-25; J2060; J7030; Q3014

== ENCOUNTER 2019-01-22 22:31 | Inpatient (IN) | payer MEDICARE, OTHER ==
[~2019-01-22] VITALS: Ht 162.6 cm; Wt 61.4 kg
[2019-01-22 23:40] LABS: BASOPHILS ABSOLUTE AUTO 0.03 K/mm3 (0.00-0.23); BASOPHILS PERCENT AUTO 0 % (0-2); EOSINOPHILS ABSOLUTE AUTO 0.01 K/mm3 (0.00-0.68); EOSINOPHILS PERCENT AUTO 0 % (0-6); Hematocrit 34.5 % (33.0-51.0); Hemoglobin 10.9 g/dL (11.5-16.0); IMMATURE GRAN ABSOLUTE AUTO 0.03 K/mm3 (0.00-0.10); IMMATURE GRAN PERCENT AUTO 0 % (0-1); LYMPHOCYTES ABSOLUTE AUTO 2.65 K/mm3 (0.84-5.20); LYMPHOCYTES PERCENT AUTO 21 % (21-46); MONOCYTES ABSOLUTE AUTO 1.03 K/mm3 (0.16-1.47); MONOCYTES PERCENT AUTO 8 % (4-13); Mean Corpuscular HGB 25.5 pg (26.0-34.0); Mean Corpuscular HGB Conc 31.6 g/dL (31.5-36.5); Mean Corpuscular Volume 81 fL (80-100); NEUTROPHILS ABSOLUTE AUTO 8.88 K/mm3 (1.96-9.15); NEUTROPHILS PERCENT AUTO 70 % (41-73); Platelet Count 210 K/mm3 (150-400); RDW Coefficient Variation 19.2 % (11.7-14.2); RDW Standard Deviation 55.3 fL (35.1-46.3); Red Blood Cell Count 4.28 M/mm3 (3.80-5.20); White Blood Cell Count 12.63 K/mm3 (4.00-11.30)
[2019-01-23] LABS: Alanine Aminotransfer (ALT/SGP 25 U/L (12-78); Albumin, Blood 3.9 g/dL (3.4-5.0); Alk Phos 130 U/L (50-136); Anion Gap 11 mmol/L (6-16); Aspartate Aminotrans (AST/SGOT 25 U/L (12-37); Beta HCG, Quantitative, Serum 2 mIU/mL (0-3); Bilirubin, Total 0.9 mg/dL (0.1-1.0); Blood Urea Nitrogen 16 mg/dL (8-24); Bun/Creatinine Ratio 22.5 (12.0-20.0); CO2, Blood 25 mmol/L (21-32); Calcium, Blood 8.5 mg/dL (8.5-10.1); Chloride, Blood 103 mmol/L (98-108); Creatinine, Blood 0.71 mg/dL (0.40-1.00); Ethanol (Alcohol), Blood, Med <3 mg/dL; Globulin, Blood 3.9 g/dL (2.2-4.0); Glomerular Filtration Rate >60 (60-); Glucose, Blood 132 mg/dL (70-99); Magnesium, Blood 1.5 mg/dL (1.6-2.4); Potassium, Blood 3.4 mmol/L (3.5-5.5); Sodium, Blood 139 mmol/L (136-145); Total Protein, Blood 7.8 g/dL (6.4-8.2); Troponin I <0.015 ng/mL (0.000-0.040)
[2019-01-23 03:55] LABS: CHOL/HDL RATIO 1.5; Cholesterol 89 mg/dL (50-200); HDL Cholesterol 58 mg/dL (>39); LDL/HDL RATIO 0.1; Low Density Lipoprotein Chol 8 mg/dL (0-110); Triglycerides 113 mg/dL (30-160); Very Low Density Lipoprot Chol 22 mg/dL (6-32)
[2019-01-23 05:27] LABS: Hemoglobin 10.4 g/dL (11.5-16.0); Mean Corpuscular HGB 25.6 pg (26.0-34.0); Mean Corpuscular HGB Conc 31.5 g/dL (31.5-36.5); Mean Corpuscular Volume 81 fL (80-100); Mean Platelet Volume 8.5 fL (9.1-12.4); Platelet Count 163 K/mm3 (150-400); RDW Standard Deviation 55.9 fL (35.1-46.3); Red Blood Cell Count 4.07 M/mm3 (3.80-5.20); White Blood Cell Count 9.84 K/mm3 (4.00-11.30)
[2019-01-23 05:49] LABS: Alanine Aminotransfer (ALT/SGP 103 U/L (12-78); Albumin, Blood 3.5 g/dL (3.4-5.0); Alk Phos 203 U/L (50-136); Anion Gap 6 mmol/L (6-16); Aspartate Aminotrans (AST/SGOT 468 U/L (12-37); Bilirubin, Total 1.7 mg/dL (0.1-1.0); Blood Urea Nitrogen 15 mg/dL (8-24); Bun/Creatinine Ratio 20.6 (12.0-20.0); CO2, Blood 29 mmol/L (21-32); Calcium, Blood 8.4 mg/dL (8.5-10.1); Chloride, Blood 104 mmol/L (98-108); Creatinine, Blood 0.73 mg/dL (0.40-1.00); Globulin, Blood 3.6 g/dL (2.2-4.0); Glomerular Filtration Rate >60 (60-); Glucose, Blood 119 mg/dL (70-99); Potassium, Blood 3.3 mmol/L (3.5-5.5); Sodium, Blood 139 mmol/L (136-145); Total Protein, Blood 7.1 g/dL (6.4-8.2)
[2019-01-23] MEDS ORDERED: AMIT10 PO (05:58)
[2019-01-23] MEDS ORDERED: OMEP20ER PO (06:00)
--- NOTE | 2019-01-23 19:43 | NUR ---
SHIFT SUMMARY- PT C/O ABD PAIN AND NAUSEA. MEDS GIVEN PER EMAR. PT DENIES SOB. RESP E/U ON INDEPENDENT IN THE ROOM. PT REQUESTING TO ADVANCE DIET TO FULL LIQUIDS THIS PM. DIET ADVANCED. PT TOLERATED FULL LIQUID DINNER. NO OTHER SIGNIFICANT CHANGES THIS SHIFT.
[2019-01-24 05:10] LABS: BASOPHILS ABSOLUTE AUTO 0.03 K/mm3 (0.00-0.23); BASOPHILS PERCENT AUTO 1 % (0-2); EOSINOPHILS ABSOLUTE AUTO 0.15 K/mm3 (0.00-0.68); EOSINOPHILS PERCENT AUTO 4 % (0-6); Hematocrit 26.1 % (33.0-51.0); IMMATURE GRAN PERCENT AUTO 0 % (0-1); LYMPHOCYTES ABSOLUTE AUTO 1.47 K/mm3 (0.84-5.20); LYMPHOCYTES PERCENT AUTO 41 % (21-46); MONOCYTES ABSOLUTE AUTO 0.38 K/mm3 (0.16-1.47); MONOCYTES PERCENT AUTO 11 % (4-13); Mean Corpuscular HGB 25.4 pg (26.0-34.0); Mean Corpuscular HGB Conc 30.7 g/dL (31.5-36.5); Mean Corpuscular Volume 83 fL (80-100); Mean Platelet Volume 9.1 fL (9.1-12.4); NEUTROPHILS ABSOLUTE AUTO 1.56 K/mm3 (1.96-9.15); NEUTROPHILS PERCENT AUTO 44 % (41-73); Platelet Count 104 K/mm3 (150-400); RDW Coefficient Variation 19.1 % (11.7-14.2); Red Blood Cell Count 3.15 M/mm3 (3.80-5.20); White Blood Cell Count 3.59 K/mm3 (4.00-11.30)
[2019-01-24 05:31] LABS: Anion Gap 4 mmol/L (6-16); Blood Urea Nitrogen 12 mg/dL (8-24); Bun/Creatinine Ratio 13.2 (12.0-20.0); CO2, Blood 26 mmol/L (21-32); Chloride, Blood 110 mmol/L (98-108); Creatinine, Blood 0.91 mg/dL (0.40-1.00); Glomerular Filtration Rate >60 (60-); Glucose, Blood 91 mg/dL (70-99); Potassium, Blood 4.6 mmol/L (3.5-5.5); Sodium, Blood 140 mmol/L (136-145)
--- NOTE | 2019-01-24 07:46 | NUR ---
NOC SHIFT SUMMARY PT ADMITTED FOR PANCREATITIS. TREATED FOR ABD PAIN THROUGH THE NIGHT PER EMAR. FLUIDS FINISHED. SLEPT OFF AND ON THROUGH THE NIGHT. AAOX4. VSS. PT VERBALIZED SHE WANTS TO ADVANCE DIET. THIS HAS BEEN RELATED TO ONCOMING NURSE. NO ACUTE CHANGES THIS NIGHT. REPORT TON ONCOMING NURSE.
[2019-01-24 07:50] LABS: Hematocrit 26.5 % (33.0-51.0); Hemoglobin 8.1 g/dL (11.5-16.0)
--- NOTE | 2019-01-24 14:57 | NUR ---
PT TO DAY SURGERY FOR EGD. Patient confirms NPO status and agrees with scheduled EGD.
--- NOTE | 2019-01-24 15:59 | NUR ---
01/24/19 1559 Milena Cooper History, Chart, Medications and Allergies reviewed before start of procedure.PATIENT DETERMINED TO BE ASA APPROPRIATE FOR PROPOFOL SEDATION PRIOR TO START OF PROCEDURE BY .MONITOR INTACT WITH CONTINUOUS PULSE OXIMETRY AND INTERMITTENT BP.3-LEAD EKG REVIEWED WITH PHYSICIAN PRIOR TO START OF PROCEDURE.O2 VIA N/C INTACT THROUGHOUT SEDATION/PROCEDURE.
[2019-01-24 17:25] LABS: C-REACTIVE PROTEIN, EXT RANGE 1.58 mg/dL (0.000-0.300)
--- NOTE | 2019-01-24 19:16 | NUR ---
SHIFT SUMMARY- HGB 8.0 THIS AM. HGB 10.[address] LUBIN PUT IN GI CONSULT THIS AM. GI CONSULT CALLED IN. PT C/O ABD PAIN AND NAUSEA. MEDS GIVEN PER EMAR. PT DENIES SOB. RESP E/U ON RA. PT HAD EGD THIS AFTERNOON. DAY SURGERY RN REPORTS EGD NEGATIVE AND DR. SIM WANTES PT TO RETURN TO FULL LIQUID DIET AND TO CONTINUE PROTONIX DRIP. MEDS GIVEN PER EMAR. INDEPENDENT IN THE ROOM. NO OTHER SIGNIFICANT CHANGES THIS SHIFT.
[2019-01-25 05:00] LABS: Source, Urine Clean Catch
[2019-01-25 05:02] LABS: Bilirubin, Urine Neg (Neg); Blood, Urine Neg (Neg); Glucose Qualitative, Urine Neg (Neg); Ketones, Urine Neg (Neg); Leukocyte Esterase, Urine Neg (Neg); Nitrite, Urine Neg (Neg); Protein, Urine Neg (Neg); Urobilinogen, Urine NORM (Normal)
[2019-01-25 05:03] LABS: Appearance, Urine Clear (Clear); Color, Urine Yellow (P-Yellow)
[2019-01-25 05:12] LABS: U Amphetamine Screen Not Detected; U Barbituate Screen Not Detected; U Benzodiazapine Screen DETECTED; U Buprenorphine Screen Not Detected; U Cannabinoids Screen Not Detected; U Cocaine Screen Not Detected; U Methadone Screen Not Detected; U Methamphetamine Screen Not Detected; U Opiates Screen DETECTED; U Oxycodone Screen Not Detected; U Phencyclidine Screen Not Detected; U Propoxyphene Screen Not Detected
--- NOTE | 2019-01-25 07:45 | NUR ---
NOC SHIFT SUMMARY PT IS PLEASANT AND COOPERATIVE WITH CARE. PER RT'S SUGGESTION I REQUESTED CPAP TO HELP PT BREATH SHE REPORTS SOB WITH SLEEPING AND LYING DOWN. THIS WAS TRIED AND PT HAD DIFFICULTY TOLERATING IT. CONTINUES TO HAVE WET SOUNDING COUGH, TREATED PER EMAR. REP PANEL CAME BACK POS FOR RHINOVIRUS. NO ACUTE CHANGES NOTED THIS NIGHT. PT VSS. REPORT TO ONCOMING RN.
--- NOTE | 2019-01-25 07:52 | NUR ---
NOT SHIFT SUMMARY PT PLEASANT AND COOPERATIVE WITH CARE. SHE WAS VERY TIRED THIS NIGHT AND SLEPT MOST OF NIGHT. PAIN TREATED PER EMAR. ON PROTONIX DRIP. NO ACUTE CHANGES NOTED THIS SHIFT. VSS. REPORT TO ONCOMING RN.
[2019-01-25 08:24] LABS: BASOPHILS ABSOLUTE AUTO 0.02 K/mm3 (0.00-0.23); BASOPHILS PERCENT AUTO 1 % (0-2); EOSINOPHILS ABSOLUTE AUTO 0.23 K/mm3 (0.00-0.68); EOSINOPHILS PERCENT AUTO 6 % (0-6); Hematocrit 27.1 % (33.0-51.0); Hemoglobin 8.2 g/dL (11.5-16.0); IMMATURE GRAN ABSOLUTE AUTO 0.01 K/mm3 (0.00-0.10); IMMATURE GRAN PERCENT AUTO 0 % (0-1); LYMPHOCYTES ABSOLUTE AUTO 1.52 K/mm3 (0.84-5.20); LYMPHOCYTES PERCENT AUTO 39 % (21-46); MONOCYTES ABSOLUTE AUTO 0.35 K/mm3 (0.16-1.47); MONOCYTES PERCENT AUTO 9 % (4-13); Mean Corpuscular HGB 25.8 pg (26.0-34.0); Mean Corpuscular HGB Conc 30.3 g/dL (31.5-36.5); Mean Corpuscular Volume 85 fL (80-100); Mean Platelet Volume 10.7 fL (9.1-12.4); NEUTROPHILS ABSOLUTE AUTO 1.73 K/mm3 (1.96-9.15); NEUTROPHILS PERCENT AUTO 45 % (41-73); Platelet Count 116 K/mm3 (150-400); RDW Coefficient Variation 18.9 % (11.7-14.2); RDW Standard Deviation 58.6 fL (35.1-46.3); Red Blood Cell Count 3.18 M/mm3 (3.80-5.20); White Blood Cell Count 3.86 K/mm3 (4.00-11.30)
--- NOTE | 2019-01-25 19:13 | NUR ---
SHIFT SUMMARY PATIENT ALERT AND ORIENTED. INDEPENDENT. PLEASANT. N OACUTE CONCERNS. CURRENTLY FOCUSED ON NAUSEA AND PAIN CONTROL. SHE IS CURRENTLY COMFORTABLE, STARTED ON LOW DOSE LOVENOX TO AVOID CLOTTING ISSUES WITH FACTOR FIVE.
--- NOTE | 2019-01-26 05:30 | NUR ---
shift summary: Pt c/o nausea and abdominal pain last pm. Compazine and norco given x 2 with adequate relief. pt sleeping most of shift. Unable to get stool sample last pm- no bm. Pt anticating a possible d/c today.
[2019-01-26 08:22] LABS: BASOPHILS ABSOLUTE AUTO 0.02 K/mm3 (0.00-0.23); BASOPHILS PERCENT AUTO 1 % (0-2); EOSINOPHILS ABSOLUTE AUTO 0.16 K/mm3 (0.00-0.68); EOSINOPHILS PERCENT AUTO 4 % (0-6); Hematocrit 26.1 % (33.0-51.0); Hemoglobin 7.9 g/dL (11.5-16.0); IMMATURE GRAN ABSOLUTE AUTO 0.01 K/mm3 (0.00-0.10); IMMATURE GRAN PERCENT AUTO 0 % (0-1); LYMPHOCYTES ABSOLUTE AUTO 1.72 K/mm3 (0.84-5.20); LYMPHOCYTES PERCENT AUTO 44 % (21-46); MONOCYTES ABSOLUTE AUTO 0.27 K/mm3 (0.16-1.47); MONOCYTES PERCENT AUTO 7 % (4-13); Mean Corpuscular HGB Conc 30.3 g/dL (31.5-36.5); Mean Corpuscular Volume 83 fL (80-100); Mean Platelet Volume 9.9 fL (9.1-12.4); NEUTROPHILS ABSOLUTE AUTO 1.72 K/mm3 (1.96-9.15); NEUTROPHILS PERCENT AUTO 44 % (41-73); NRBC ABSOLUTE 0.02 K/mm3 (0.00-0.02); NRBC Auto 0.5 /100 WBC (0.0-0.2); Platelet Count 109 K/mm3 (150-400); RDW Standard Deviation 56.9 fL (35.1-46.3); Red Blood Cell Count 3.16 M/mm3 (3.80-5.20)
[2019-01-26 08:43] LABS: Alanine Aminotransfer (ALT/SGP 23 U/L (12-78); Albumin, Blood 2.8 g/dL (3.4-5.0); Albumin/Globulin Ratio 0.8 (0.8-1.8); Alk Phos 136 U/L (50-136); Anion Gap 6 mmol/L (6-16); Aspartate Aminotrans (AST/SGOT 18 U/L (12-37); Bilirubin, Total 0.2 mg/dL (0.1-1.0); Blood Urea Nitrogen 16 mg/dL (8-24); Bun/Creatinine Ratio 16.3 (12.0-20.0); CO2, Blood 26 mmol/L (21-32); Calcium, Blood 8.1 mg/dL (8.5-10.1); Chloride, Blood 108 mmol/L (98-108); Creatinine, Blood 0.98 mg/dL (0.40-1.00); Globulin, Blood 3.3 g/dL (2.2-4.0); Glomerular Filtration Rate >60 (60-); Glucose, Blood 98 mg/dL (70-99); Potassium, Blood 4.3 mmol/L (3.5-5.5); Sodium, Blood 140 mmol/L (136-145); Total Protein, Blood 6.1 g/dL (6.4-8.2)
[2019-01-26 13:32] LABS: BASOPHILS ABSOLUTE AUTO 0.02 K/mm3 (0.00-0.23); BASOPHILS PERCENT AUTO 0 % (0-2); EOSINOPHILS ABSOLUTE AUTO 0.17 K/mm3 (0.00-0.68); EOSINOPHILS PERCENT AUTO 3 % (0-6); Hematocrit 26.9 % (33.0-51.0); Hemoglobin 8.1 g/dL (11.5-16.0); IMMATURE GRAN ABSOLUTE AUTO 0.02 K/mm3 (0.00-0.10); IMMATURE GRAN PERCENT AUTO 0 % (0-1); LYMPHOCYTES ABSOLUTE AUTO 1.97 K/mm3 (0.84-5.20); LYMPHOCYTES PERCENT AUTO 33 % (21-46); MONOCYTES PERCENT AUTO 5 % (4-13); Mean Corpuscular HGB 25.6 pg (26.0-34.0); Mean Corpuscular HGB Conc 30.1 g/dL (31.5-36.5); Mean Corpuscular Volume 85 fL (80-100); Mean Platelet Volume 9.8 fL (9.1-12.4); NEUTROPHILS ABSOLUTE AUTO 3.49 K/mm3 (1.96-9.15); NEUTROPHILS PERCENT AUTO 59 % (41-73); Platelet Count 117 K/mm3 (150-400); RDW Coefficient Variation 19.1 % (11.7-14.2); RDW Standard Deviation 57.2 fL (35.1-46.3); Red Blood Cell Count 3.17 M/mm3 (3.80-5.20); White Blood Cell Count 5.97 K/mm3 (4.00-11.30)
[2019-01-26] MEDS ORDERED: CREON DR 12,001 EACH PO (16:13)
--- NOTE | 2019-01-26 16:51 | NUR ---
DISCHARGE SUMMARY PATIENT IS PLEASANT, NO ACUTE CONCERNS AT THIS TIME. EXPLAINED HER MEDICAITONS TO HER AND THAT SHE NEEDS TO GET HER CBC CHECKED AT LEAST HER HEMOGLOBIN ON MONDAY. TALKED WITH THE PATIENT ABOUT HER FOLLOW UPS, HER MEDICATIONS, AND THAT THEY HAVE BEEN FILLED AT [facility] PRIOR TO HER DISCHARGE. SHE ASKED ABOUT PAIN MEDICATIONS AND I SPOKE WITH HER IN DEPTH WELL. PATIENT JUST LEFT, WALKED OUT AND MADE SOME COMMENTS UNDER HER BREATH BEFORE LEAVING. SIGNED PAPERWORK WAS DONE PRIOR TO PATIENTS DISCHARGE.
[2019-02-02] MEDS ORDERED: HYDHCL25 PO (11:56)
[2019-02-02] MEDS ORDERED: OMEPRAZOLE MAGN20 M1 PO (11:57)
[2019-02-02] MEDS ORDERED: ELIQUIS2.5 MG PO (12:02)
[2019-02-02] MEDS ORDERED: QUET200 (12:02)
[2019-02-02] MEDS ORDERED: Lopressor 50 mg50 MG PO (12:03)
[2019-02-04] MEDS ORDERED: FERSU300 PO (14:37)
[2019-02-04] MEDS ORDERED: ONDA4 PO (14:37)
== END 2019-01-26 16:42 | disposition home or self-care (01) | DRG 439 ==
LOC: ER 22:31 → MEDS 22:32 → ER 01-23 03:48 → MEDS 01-23 03:48
PROVIDERS: Emergency Medicine; Hospitalist; Internal Medicine Gastroenterology; ADMIT Internal Medicine
PROC: 0DJ08ZZ Inspection of Upper Intestinal Tract, Via Natural or Artificial Opening Endoscopic (ICD-10-PCS; principal; 2019-01-24 15:45)
DX: K85.20 Alcohol induced acute pancreatitis without necrosis or infection (principal); D68.51 Activated protein C resistance; D61.818 Other pancytopenia; E86.0 Dehydration; I10 Essential (primary) hypertension; D64.9 Anemia, unspecified; F41.9 Anxiety disorder, unspecified; F32.9 Major depressive disorder, single episode, unspecified; F43.10 Post-traumatic stress disorder, unspecified; Z86.73 Personal history of transient ischemic attack (TIA), and cerebral infarction without residual deficits; Z86.711 Personal history of pulmonary embolism; Z86.74 Personal history of sudden cardiac arrest; Z95.810 Presence of automatic (implantable) cardiac defibrillator; Z79.899 Other long term (current) drug therapy; Z98.84 Bariatric surgery status
CPT/HCPCS: 36415; 80048; 80053; 80061; 81003; 82977; 83690; 83735; 84484; 84702; 85014; 85018; 85025; 85027; 86140; 93005; 93010; 96365; 96366; 96374; 96375; 96376; 99285-25; C9113; G0378; G0480; J0360; J0780; J1170; J1650; J2060; J2250; J2405; J2550; J2704; J3010; J3475; J3480; J7120

== ENCOUNTER 2019-10-03 14:29 | Inpatient (IN) | payer MEDICARE, OTHER ==
[~2019-10-03] VITALS: Ht 162.6 cm; Wt 63.1 kg
[~2019-10-03 14:29] MED LIST changes: +CREON DR 12,001 EACH PO; +ELIQUIS2.5 MG PO; +FERSU300 PO; -LOSARTAN POTAS100 MG PO; +OMEPRAZOLE MAGN20 M1 PO; +QUET200; -QUETIAPINE FUM200 MG PO
[2019-10-03 15:25] LABS: Source, Urine Clean Catch
[2019-10-03 15:29] LABS: Bilirubin, Urine Neg (Neg); Blood, Urine Neg (Neg); Glucose Qualitative, Urine Neg (Neg); Ketones, Urine Neg (Neg); Leukocyte Esterase, Urine Neg (Neg); Nitrite, Urine Neg (Neg); Protein, Urine Neg (Neg); Urobilinogen, Urine NORM (Normal)
[2019-10-03 15:43] LABS: Appearance, Urine Clear (Clear); Color, Urine Pale Yellow (P-Yellow)
[2019-10-03 15:44] LABS: U Amphetamine Screen Not Detected; U Barbituate Screen Not Detected; U Benzodiazapine Screen Not Detected; U Buprenorphine Screen Not Detected; U Cannabinoids Screen Not Detected; U Cocaine Screen Not Detected; U Methadone Screen Not Detected; U Methamphetamine Screen Not Detected; U Opiates Screen Not Detected; U Oxycodone Screen Not Detected; U Phencyclidine Screen Not Detected; U Propoxyphene Screen Not Detected
[2019-10-03 15:48] LABS: BASOPHILS ABSOLUTE AUTO 0.04 K/mm3 (0.00-0.23); BASOPHILS PERCENT AUTO 1 % (0-2); EOSINOPHILS ABSOLUTE AUTO 0.09 K/mm3 (0.00-0.68); EOSINOPHILS PERCENT AUTO 1 % (0-6); Hematocrit 40.2 % (33.0-51.0); Hemoglobin 12.4 g/dL (11.5-16.0); IMMATURE GRAN ABSOLUTE AUTO 0.02 K/mm3 (0.00-0.10); IMMATURE GRAN PERCENT AUTO 0 % (0-1); LYMPHOCYTES ABSOLUTE AUTO 1.98 K/mm3 (0.84-5.20); LYMPHOCYTES PERCENT AUTO 31 % (21-46); MONOCYTES ABSOLUTE AUTO 0.48 K/mm3 (0.16-1.47); MONOCYTES PERCENT AUTO 8 % (4-13); Mean Corpuscular HGB 28.6 pg (26.0-34.0); Mean Corpuscular HGB Conc 30.8 g/dL (31.5-36.5); Mean Corpuscular Volume 93 fL (80-100); Mean Platelet Volume 8.7 fL (9.1-12.4); NEUTROPHILS ABSOLUTE AUTO 3.69 K/mm3 (1.96-9.15); NEUTROPHILS PERCENT AUTO 59 % (41-73); Platelet Count 251 K/mm3 (150-400); RDW Coefficient Variation 19.6 % (11.7-14.2); RDW Standard Deviation 66.3 fL (35.1-46.3); Red Blood Cell Count 4.33 M/mm3 (3.80-5.20)
[2019-10-03 16:02] LABS: International Normalized Ratio 1.02; Prothrombin Time Results 10.9 Sec (9.7-11.5)
[2019-10-03 16:10] LABS: Alanine Aminotransfer (ALT/SGP 47 U/L (12-78); Albumin, Blood 3.1 g/dL (3.4-5.0); Albumin/Globulin Ratio 0.6 (0.8-1.8); Alk Phos 173 U/L (50-136); Anion Gap 4 mmol/L (6-16); Aspartate Aminotrans (AST/SGOT 92 U/L (12-37); Bilirubin, Total 0.2 mg/dL (0.1-1.0); Blood Urea Nitrogen 7 mg/dL (8-24); Bun/Creatinine Ratio 10.7 (12.0-20.0); CO2, Blood 25 mmol/L (21-32); Calcium, Blood 7.7 mg/dL (8.5-10.1); Chloride, Blood 109 mmol/L (98-108); Creatinine, Blood 0.65 mg/dL (0.40-1.00); Globulin, Blood 5.1 g/dL (2.2-4.0); Glomerular Filtration Rate >60 (60-); Glucose, Blood 111 mg/dL (70-99); Salicylate <1.7 mg/dL (2.8-20.0); Sodium, Blood 138 mmol/L (136-145); Total Protein, Blood 8.2 g/dL (6.4-8.2)
[2019-10-03 16:33] LABS: Ethanol (Alcohol), Blood, Med 339 mg/dL
[2019-10-03 16:34] LABS: Acetaminophen, Random <2.0 ug/mL (10.0-30.0)
[2019-10-03] MEDS ORDERED: Ventolin/Prove6.7 GM INH (17:18)
[2019-10-03] MEDS ORDERED: ELIQUIS5 M3 PO (17:38)
[2019-10-03] MEDS ORDERED: QUET100 PO (17:39)
[2019-10-03] MEDS ORDERED: OMEP20ER PO (17:40)
[2019-10-03] MEDS ORDERED: LOSARTAN POTAS100 MG PO (17:40)
[2019-10-03] MEDS ORDERED: Lopressor 50 mg50 MG PO (17:41)
[2019-10-03] MEDS ORDERED: HYDHCL25 PO (17:49)
[2019-10-03] MEDS ORDERED: AMIT10 PO (17:49)
[2019-10-03] MEDS ORDERED: H (19:20)
[2019-10-03 21:27] LABS: Hematocrit 38.4 % (33.0-51.0); Hemoglobin 12.2 g/dL (11.5-16.0)
[2019-10-04 03:34] LABS: BASOPHILS ABSOLUTE AUTO 0.03 K/mm3 (0.00-0.23); BASOPHILS PERCENT AUTO 1 % (0-2); EOSINOPHILS ABSOLUTE AUTO 0.06 K/mm3 (0.00-0.68); EOSINOPHILS PERCENT AUTO 1 % (0-6); Hematocrit 32.7 % (33.0-51.0); Hemoglobin 10.5 g/dL (11.5-16.0); IMMATURE GRAN ABSOLUTE AUTO 0.01 K/mm3 (0.00-0.10); IMMATURE GRAN PERCENT AUTO 0 % (0-1); LYMPHOCYTES ABSOLUTE AUTO 1.95 K/mm3 (0.84-5.20); LYMPHOCYTES PERCENT AUTO 37 % (21-46); MONOCYTES ABSOLUTE AUTO 0.38 K/mm3 (0.16-1.47); MONOCYTES PERCENT AUTO 7 % (4-13); Mean Corpuscular HGB 29.4 pg (26.0-34.0); Mean Corpuscular HGB Conc 32.1 g/dL (31.5-36.5); Mean Corpuscular Volume 92 fL (80-100); Mean Platelet Volume 9.4 fL (9.1-12.4); NEUTROPHILS ABSOLUTE AUTO 2.84 K/mm3 (1.96-9.15); NEUTROPHILS PERCENT AUTO 54 % (41-73); Platelet Count 193 K/mm3 (150-400); Red Blood Cell Count 3.57 M/mm3 (3.80-5.20); White Blood Cell Count 5.27 K/mm3 (4.00-11.30)
[2019-10-04 03:54] LABS: Alanine Aminotransfer (ALT/SGP 39 U/L (12-78); Albumin, Blood 2.6 g/dL (3.4-5.0); Albumin/Globulin Ratio 0.6 (0.8-1.8); Alk Phos 144 U/L (50-136); Anion Gap 7 mmol/L (6-16); Aspartate Aminotrans (AST/SGOT 59 U/L (12-37); Bilirubin, Total 0.3 mg/dL (0.1-1.0); Blood Urea Nitrogen 6 mg/dL (8-24); Bun/Creatinine Ratio 10.2 (12.0-20.0); CO2, Blood 24 mmol/L (21-32); Calcium, Blood 7.7 mg/dL (8.5-10.1); Chloride, Blood 105 mmol/L (98-108); Creatinine, Blood 0.59 mg/dL (0.40-1.00); Globulin, Blood 4.1 g/dL (2.2-4.0); Glomerular Filtration Rate >60 (60-); Glucose, Blood 114 mg/dL (70-99); Potassium, Blood 4.1 mmol/L (3.5-5.5); Sodium, Blood 136 mmol/L (136-145); Total Protein, Blood 6.7 g/dL (6.4-8.2)
[2019-10-04] MEDS ORDERED: FOLI1 PO (15:56)
[2019-10-04] MEDS ORDERED: SERT25 PO (15:57)
[2019-10-04] MEDS ORDERED: B-1100 M1 PO (15:58)
[2019-10-11] MEDS ORDERED: QUET200 PO (23:28)
== END 2019-10-04 16:30 | disposition home or self-care (01) | DRG 918 ==
LOC: ER 14:29 → ICUW 18:18 → ICUE 18:18
PROVIDERS: Physician Assistant; ADMIT Internal Medicine
DX: T45.512A Poisoning by anticoagulants, intentional self-harm, initial encounter (principal); F33.9 Major depressive disorder, recurrent, unspecified; D68.51 Activated protein C resistance; G89.29 Other chronic pain; I10 Essential (primary) hypertension; F10.20 Alcohol dependence, uncomplicated; R94.5 Abnormal results of liver function studies; R74.0 Nonspecific elevation of levels of transaminase and lactic acid dehydrogenase [LDH]; F43.10 Post-traumatic stress disorder, unspecified; Z86.718 Personal history of other venous thrombosis and embolism; Z95.1 Presence of aortocoronary bypass graft; Z95.0 Presence of cardiac pacemaker; Z79.01 Long term (current) use of anticoagulants
CPT/HCPCS: 36415; 80053; 81003; 81025; 85014; 85018; 85025; 85610; 85730; 93005; 93010; 99285-25; A9270; A9270-GY; G0480; J0153; J2405; J3411; J3475; J7042

== ENCOUNTER 2019-10-11 23:12 | Inpatient (IN) | payer MEDICARE, OTHER ==
[~2019-10-11] VITALS: Ht 162.6 cm; Wt 62.4 kg
[~2019-10-11 23:12] MED LIST changes: +B-1100 M1 PO; +ELIQUIS5 M3 PO; +FOLI1 PO; +H; +HYDHCL25 PO; +LOSARTAN POTAS100 MG PO; +Lopressor 50 mg50 MG PO; +OMEP20ER PO; +SERT25 PO; +Ventolin/Prove6.7 GM INH
[2019-10-11] MEDS ORDERED: QUET100 PO (23:28)
[2019-10-11 23:54] LABS: BASOPHILS ABSOLUTE AUTO 0.02 K/mm3 (0.00-0.23); BASOPHILS PERCENT AUTO 1 % (0-2); EOSINOPHILS ABSOLUTE AUTO 0.12 K/mm3 (0.00-0.68); EOSINOPHILS PERCENT AUTO 3 % (0-6); Hematocrit 34.6 % (33.0-51.0); Hemoglobin 11.2 g/dL (11.5-16.0); IMMATURE GRAN PERCENT AUTO 0 % (0-1); LYMPHOCYTES ABSOLUTE AUTO 2.08 K/mm3 (0.84-5.20); LYMPHOCYTES PERCENT AUTO 58 % (21-46); MONOCYTES ABSOLUTE AUTO 0.27 K/mm3 (0.16-1.47); MONOCYTES PERCENT AUTO 8 % (4-13); Mean Corpuscular HGB 29.7 pg (26.0-34.0); Mean Corpuscular HGB Conc 32.4 g/dL (31.5-36.5); Mean Corpuscular Volume 92 fL (80-100); Mean Platelet Volume 8.8 fL (9.1-12.4); NEUTROPHILS PERCENT AUTO 31 % (41-73); Platelet Count 123 K/mm3 (150-400); RDW Coefficient Variation 19.3 % (11.7-14.2); RDW Standard Deviation 65.1 fL (35.1-46.3); Red Blood Cell Count 3.77 M/mm3 (3.80-5.20); White Blood Cell Count 3.59 K/mm3 (4.00-11.30)
[2019-10-12 00:12] LABS: International Normalized Ratio 1.12; Prothrombin Time Results 11.9 Sec (9.7-11.5)
[2019-10-12 00:14] LABS: Acetaminophen, Random 24.6 ug/mL (10.0-30.0); Alanine Aminotransfer (ALT/SGP 81 U/L (12-78); Albumin, Blood 2.8 g/dL (3.4-5.0); Albumin/Globulin Ratio 0.6 (0.8-1.8); Alk Phos 186 U/L (50-136); Anion Gap 8 mmol/L (6-16); Aspartate Aminotrans (AST/SGOT 130 U/L (12-37); Bilirubin, Total 0.3 mg/dL (0.1-1.0); Blood Urea Nitrogen 5 mg/dL (8-24); Bun/Creatinine Ratio 6.7 (12.0-20.0); CO2, Blood 25 mmol/L (21-32); Chloride, Blood 110 mmol/L (98-108); Creatinine, Blood 0.75 mg/dL (0.40-1.00); Ethanol (Alcohol), Blood, Med 223 mg/dL; Globulin, Blood 4.5 g/dL (2.2-4.0); Glomerular Filtration Rate >60 (60-); Glucose, Blood 104 mg/dL (70-99); Salicylate <1.7 mg/dL (2.8-20.0); Sodium, Blood 143 mmol/L (136-145); Total Protein, Blood 7.3 g/dL (6.4-8.2); Troponin I <0.015 ng/mL (0.000-0.040)
--- NOTE | 2019-10-12 04:00 | NUR ---
PT ADMITTED TO ROOM ICU 10 FROM EMERGENCY DEPARTMENT. ARRIVING TO ROOM AT 0310. PT ALERT AND ORIENTED WITH SOMEWHAT A FLAT AFFECT. IS ABLE TO PROVIDE VERBAL CONTRACT TO NOT HARM HERSELF DURING STAY AT HOSPITAL. WILL REVIEW CHART AND PLAN OF CARE FOR THIS PT.
[2019-10-12 04:19] LABS: Source, Urine Clean Catch
[2019-10-12 04:21] LABS: Bilirubin, Urine Neg (Neg); Blood, Urine Neg (Neg); Glucose Qualitative, Urine Neg (Neg); Ketones, Urine Neg (Neg); Leukocyte Esterase, Urine 1+ (Neg); Nitrite, Urine Neg (Neg); Protein, Urine Neg (Neg); Urobilinogen, Urine NORM (Normal)
[2019-10-12 04:27] LABS: Appearance, Urine Hazy (Clear); Color, Urine Yellow (P-Yellow)
[2019-10-12 04:28] LABS: Amorphous Light (0-Heavy); Bacteria Many /hpf; Hyaline Casts 0-2 /lpf (0-2); Mucus Light (0-Heavy); Red Blood Cells, Urine Not Seen /hpf (0-2); Squamous Epithelial Cells Mod /hpf (Few)
[2019-10-12 04:35] LABS: U Amphetamine Screen Not Detected; U Barbituate Screen Not Detected; U Benzodiazapine Screen Not Detected; U Buprenorphine Screen Not Detected; U Cannabinoids Screen Not Detected; U Cocaine Screen Not Detected; U Methadone Screen Not Detected; U Methamphetamine Screen Not Detected; U Opiates Screen Not Detected; U Oxycodone Screen Not Detected; U Phencyclidine Screen Not Detected; U Propoxyphene Screen Not Detected
[2019-10-12 05:41] LABS: Albumin, Blood 2.8 g/dL (3.4-5.0); Albumin/Globulin Ratio 0.7 (0.8-1.8); Bilirubin, Direct 0.1 mg/dL (0.0-0.3); Bilirubin, Indirect 0.3 mg/dL (0.1-0.7); Bilirubin, Total 0.4 mg/dL (0.1-1.0); Globulin, Blood 4.1 g/dL (2.2-4.0); Total Protein, Blood 6.9 g/dL (6.4-8.2)
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
--- NOTE | 2019-10-12 07:50 | NUR ---
Pt resting in bed. States that she is nauseous and that she is having chest pressure. Pt seems very anxious. Stated mutiple times, "I have problems with blood clots". Pt pointed out 2 raised red bumps on side of L face and neck that appear like insect bites and states "I think these are blood clots". Reminded Pt that she took excess Eliquis and that she likely does not have a blood clot but assured her that I would let the physician know about her concerns. CIWA scale 12. Will treat with ativan. LS clear. HR reg. BT positive. Pt had some bile emisis. Medicated with zofran. Will continue to monitor and treat.
--- NOTE | 2019-10-12 08:00 | NUR ---
AM ASSESSMENT: Pt sitting up at edge of bed. Able to lay himself back down with out assistance. Denies pain, SOB at this time. States that he is feeling good and that he is hoping to go home today. VSS. IV heprin running per orders and IVF running per orders. Denies needs. Call light in reach. Will continue to monitor.
--- NOTE | 2019-10-12 13:15 | NUR ---
Pt feeling better since this am. States that pain in her chest has improved. Nausea, sob and anxiety have improved. Telepsych ordered and appointment at 1330. Pt agreed to this. Stable at this time. Will monitor.
--- NOTE | 2019-10-12 17:20 | NUR ---
SHIFT SUMMARY: Pt resting in bed at this time. States that she is feeling much better. Pt nausea, chest heaviness, and anxiety have improved greatly througout the shift. Pt did start to experiance some loose stools this afternoon. NAC IVF running per orders this shift. VSS. CIWA remained below 8 since this am assessment. Telepsych was completed. Pt stated that it went fine. Pt denies being suicidal at this time. States she has not thoughout about it and does not have a plan. No other changes this shift. Will report to night RN.
[2019-10-12 19:38] LABS: Alanine Aminotransfer (ALT/SGP 68 U/L (12-78); Albumin, Blood 2.7 g/dL (3.4-5.0); Albumin/Globulin Ratio 0.6 (0.8-1.8); Alk Phos 169 U/L (50-136); Aspartate Aminotrans (AST/SGOT 87 U/L (12-37); Bilirubin, Direct 0.2 mg/dL (0.0-0.3); Bilirubin, Indirect 0.4 mg/dL (0.1-0.7); Bilirubin, Total 0.6 mg/dL (0.1-1.0); Globulin, Blood 4.5 g/dL (2.2-4.0); Salicylate <1.7 mg/dL (2.8-20.0); Total Protein, Blood 7.2 g/dL (6.4-8.2)
--- NOTE | 2019-10-12 20:00 | NUR ---
ASSUMED CARE OF PT AT 1915. REPORT RECEIVED. PT PRESENTS IN BED. SLIGHTLY SLURRED SPEECH. IS ABLE TO HOLD CONVERSATION. STATES SHE IS FEELING SAFE AT THE HOSPITAL. WILL REVIEW CHART AND PLAN OF CARE FOR THIS P.
--- NOTE | 2019-10-13 01:00 | NUR ---
PT CONTINUES WITH REMOTE CAMERA MONITORING. PT HAS BEEN INCREASINGLY MORE IMPULSIVE AND UNSTEADY ON FEET. HAS NOT CALLED FOR ASSIST WHEN SHE NEEDS TO GET OUT OF BED TO VOID.
[2019-10-13 01:31] LABS: Acetaminophen, Random <2.0 ug/mL (10.0-30.0); Alanine Aminotransfer (ALT/SGP 57 U/L (12-78); Albumin, Blood 2.3 g/dL (3.4-5.0); Albumin/Globulin Ratio 0.6 (0.8-1.8); Alk Phos 132 U/L (50-136); Aspartate Aminotrans (AST/SGOT 61 U/L (12-37); Bilirubin, Direct 0.2 mg/dL (0.0-0.3); Bilirubin, Indirect 0.2 mg/dL (0.1-0.7); Bilirubin, Total 0.4 mg/dL (0.1-1.0); Globulin, Blood 3.7 g/dL (2.2-4.0)
--- NOTE | 2019-10-13 02:29 | NUR ---
POISON CONTROL: CALL FROM ENRIQUE FROM AT 0220 FOR UPDATE ON PT. LAB VALUES GIVEN. SUGGESTION WAS TO CONTINUE TO FINISH MUCOMYST gtt TO PROTECT LIVER FUNCTION.
--- NOTE | 2019-10-13 06:30 | NUR ---
PT HAS BECOME MORE CONFUSED. PT'S CIWA INCREASING, AND WAS MEDICATED WITH A TOTAL OF 4 MG ATIVAN. THIS HAD LITTLE AFFECT ON AGITATION AND IMPULSIVENESS. PT PLACED IN ANA VEST SECONDARY TO PT NOT BEING DIRECTABLE AND INCREASING RISK FOR INJURY. PT PULLS AT VEST AND ATTEMPTS TO REMOVE. WILL CONSIDER WRIST RESTRAINTS. WILL CONTINUE TO MONITOR PT, AND WILL REPORT OFF TO ONCOMING RN.
--- NOTE | 2019-10-13 11:43 | NUR ---
PT DENIES S.I. CURRENTLY. PT IS FREQENTLY IMPULSIVE DIRECTABLE FOR ONLY SHORT PERIODS OF TIME CURRENTLY. PT IS IN WRIST, L ANKLE, VEST RESTRAINTS. PT DENIES PAIN OR CURRENT DISTRESS. PT SPEAK CAN BE CLEAR BUT IS ALSO GARBLED AND SOME RANDOM AND MULTIPLE TOPICS IN THE SAME SHORT CONVERSATION. PT IS ON CAMERA AND ROOM HAS BEEN CHECKED FOR SAFETY.
--- NOTE | 2019-10-13 14:27 | NUR ---
PT PERSISTS IN NEAR PERPETUAL MOTION ATTEMPTING TO REMOVE RESTRAITS AND PULL AT LINES WHEN UP. WILL ATTEMPT ATIVAN IVP.
--- NOTE | 2019-10-13 17:21 | NUR ---
PT IS AWAKENED AND MOVED TO R SIDE AND IS CURRENTLY CONFUSED AND RESTLESS. PT C/O BILLY BUT FEW MINUTES LATER PT IS CALM AND SLEEPING. PT CURRENTLY CALLING AND SAYING THAT SHE HURTS BVT IS NOT ABLE TO TELL WHERE SHE IS PAINFUL. CALMED AGAIN WHEN GIVEN TIME.
--- NOTE | 2019-10-13 18:06 | NUR ---
PT IS CURRENTLY CALM AND SEDATE ON PRECEDEX GTT DOWN TO O.3MCG CURRENTLY WITH TKO NS IVF. VSS. PT REMAINS RESTRAINED. PT RESP EVEN AND UNLABORED WITH SATS STABLE.
--- NOTE | 2019-10-13 20:56 | NUR ---
ASSUMED CARE OF PT, REPORT RCV'D FROM CAROLYN VILLALOBOS. PT ON PRECEDEX 0.3 MCG/KG/HR AT START OF SHIFT, TURNED PRECEDEX DOWN TO 0.2 MCG/KG/HR. PT DROWSY BUT ALERT TO VERBAL STIMULUS. PT ABLE TO WAKE UP AND APPROPRIATELY ANSWER QUESTIONS AND SWALLOW WATER/PO MEDICATIONS. PT REMAINS IN BILATERAL SOFT-WRIST RESTRAINTS AND ANA VEST D/T ATTEMPTS TO UNSAFELY AMBULATE. WILL RE-EVALUATE NEED FOR RESTRAINTS/SEDATION T/O SHIFT. PT HAS SELF-INFLICTED SUPERFICIAL CUTS TO LEFT UPPER THIGH AND LEFT WRIST (SEE PICTURES IN CHART), RIGHT EYE IS BLACKENED. PER DAYSHIFT NURSE PT REPORTS SHE "FELL INTO COFFEE TABLE". WHEN THIS NURSE ASKED WHAT HAPPENED, PT MUMBLED AND WENT BACK TO SLEEP. HIGH RISK SUICIDE PRECAUTIONS IN PLACE. CAMERA MONITORING ON. CURTAIN/DOOR OPEN, BED IN LOW LOCKED POSITION, ROOM MITIGATED PER SUICIDE PRECAUTION PROTOCOL. SEE FULL SHIFT ASSESSMENT
--- NOTE | 2019-10-14 00:55 | NUR ---
MIDSHIFT SUMMARY PT REMAINS ON PRECEDEX 0.2 MCG/KG/HR. PT AWAKENS TO VERBAL STIMULI, ABLE TO APPROPRIATELY ANSWER QUESTIONS. PT TAKENS OUT OF BILATERAL WRIST RESTRAINTS AT 0045, EXPLAINED TO IMPORTANCE OF NOT PULLING ON LINES/CORDS. PT STATES "OK". ASKED PT HOW SHE GOT A BLACK EYE, PT RESPONDS "I HIT SOMETHING, MAYBE THE TV OR SOMETHING". ANA VEST REMAINS IN PLACE TO PREVENT UNSAFE AMBULATION. BED IN LOW/LOCKED POSITION, DOOR/CURTAIN OPEN AND BED ALARM ON.
--- NOTE | 2019-10-14 05:55 | NUR ---
SHIFT SUMMARY PT TAKEN OUT OF BILATERAL WRIST RESTRAINTS AT 0045. PT ALERT TO VERBAL STIMULUS, EASILY AROUSABLE-CONFUSED TO LOCATION BUT EASILY REORIENTED. PRECEDEX @ 0.2 MCG/KG/HR. ANA VEST REMAINS IN PLACE TO DISCOURAGE PATIENT FROM UNSAFELY AMBULATING. BED ALARM ON, BED IN LOW/LOCKED POSITION, CURTAIN/DOOR OPEN. PT REMAINS ON 2-MD HOLD, CAMERA MONITORING ON. CIWA OF 0-3 T/O SHIFT. WILL REPORT TO DAYSHIFT NURSE.
--- NOTE | 2019-10-14 08:31 | NUR ---
ASSUMED CARE: REPORT RECEIVED FROM PETE Kaiser RN. ASSUMED CARE OF THIS PT AT APPROX 0700. ON ASSESSMENT, THE PT IS RESTING QUIETLY. SHE AWAKENS EASILY TO VERBAL STIMULUS, BUT REMAINS DROWSY. WILL ASSESS CURRENT SI WHEN MORE ALERT THIS AM. LS ARE CLEAR T/O, PT ON RA W/ O2 SATS > 92%. MONITOR SHOWS SR W/ HR 70s, BP STABLE. PT HAS NO GI/ COMPLAINTS. DENIES HUNGER THIS AM WHEN OFFERED BREAKFAST TRAY. BRUISING SURROUNDING R EYE IS UNCHANGED PER REPORT & CAUSED BY A FALL AT HOME. PT HAS NUMEROUS HEALED LACERATIONS R/T SELF HARM ON L WRIST & L THIGH. ATTEMPTING TO TITRATE PRECEDEX OFF. ANA VEST REMAINS ON FOR HIGH FALL RISK. WILL CONTINUE TO MONITOR & UPDATE NEEDED.
--- NOTE | 2019-10-14 09:14 | NUR ---
No safety plan comleted. Pt sl;eeping and medicated and was too drowsy to participate. RN updated.
--- NOTE | 2019-10-14 10:06 | NUR ---
POISON CENTER: CALL FROM DARYN AT POISON CENTER. SHE STS POISON CENTER WILL BE SIGNING OFF OF THE PT's CASE AT THIS TIME.
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
--- NOTE | 2019-10-14 16:09 | NUR ---
UPDATE: DR SUAREZUFF IN TO SEE THE PT THIS AFTERNOON. MOD RISK SI PRECAUTIONS HAVE BEEN D/C'd & 2MD HOLD HAS BEEN DROPPED. HE STS OKAY TO D/C HOME IF MEDICALLY CLEARED BY HOSPITALIST PROVIDER & ORDERS HAVE BEEN PLACED. CALL TO DR CRAMER REGARDING POSSIBILITY OF PT DISCHARGING HOME. NOTIFIED HER THAT THE PT CONTINUES TO BE DROWSY & WEAK. SHE STS TO MAKE THE PT MEDICAL STATUS W/ NO TELE & TO MONITOR FOR ANOTHER NIGHT W/ POSSIBILITY OF D/C HOME TOMORROW. SHE WOULD LIKE THE PT TO RECEIVE NO SEDATING MEDICATIONS. ORDERS PLACED.
--- NOTE | 2019-10-14 17:36 | NUR ---
PATIENT TRANSFERRED FROM ICU 10 TO ROOM 344. HIGH SUICIDE PRECAUTIONS HAVE NOW BEEN DC'D. PATIENT IS A/OX4, UP WITH SBA TO RESTROOM. R EYE HEMATOMA, PATIENT STATES "I BUMPED IT." IV TO R FA WNL AND SL. DENIES ANY PAIN OR DISCOMFRT. ORIENTED TO ROOM AND USE OF CALL LIGHT. CALM AND COOPERATIVE WITH CARE. CIWA 0 AT THIS TIME.
--- NOTE | 2019-10-15 02:59 | NUR ---
SHIFT SUMMARY ASSUMED CARE OF PT AT 1900. PT IS A/O X4, DENIED N/T IN EXTREMITIES INITIALY. HEART SOUNDS REGULAR, LUNG SOUNDS CLEAR, DENIES SOB/CP AT THIS TIME. AFTER THIS NURSE LEFT THE PATIENTS ROOM AND RETURNED WITH NIGHTLY MEDICATIONS, PT ASKED IF SHE COULD HAVE MORE OF "THAT MEDICATION THAT THEY WERE GIVING MY DOWNSTAIRS". WHEN ASKING THE PATIENT TO STATE HER SYMPTOMS PATIENT STATED THAT SHE WAS "HAVING WITHDRAWL SYMPTOMS (HER HEART WAS RACING, SHE HAD A HEADACHE AND SHE HAD N/T IN HER EXTREMITES). PT WAS LYING IN BED LISTENING TO MUSIC ON HER PHONE NAPING BEFORE THIS. CIWAH SCORED A 9 PER PATIENT VERBAL RESPONSES. LATER TONIGHT, PT ASKED AGAIN IF SHE COULD HAVE MORE OF THE MEDICATION THAT SHE HAD DOWNSTAIRS BEUCASE IT HAS BEEN A WHILE AND SHE WASW HAVING WITHDRAWL SYMPTOMS. PT STATED HER SYSMPTOMS BEFORE, WHEN PERFORMING THE CIWAH BY OBSERVATION, PT SCORED A 7. PT MEDICATED WITH ATIVAN BOTH TIMES. PT IS INDEPENDENT IN ROOM, HAS ASKED FOR SNACKS THREE TIMES DURING THE NIGHT. PT SLEPT MOST OF THE NIGHT. CALL LIGHT IN REACH, BED IN LOWEST POSTION, WILL CONTINUE TO MONITOR UNTIL DAYSHIFT NURSE ARRIVES.
--- NOTE | 2019-10-15 09:00 | NUR ---
PT REPORTS FEELING "ANXIOUS" AND REQUESTING ATIVAN. PT GIVEN 0.5MG ATIVAN IV IN RIGHT WRIST.
[2019-10-15] MEDS ORDERED: METR500 PO (10:20)
--- NOTE | 2019-10-15 10:41 | NUR ---
DISCHARGE INSTRUCTIONS REVIEWED WITH PT. IV X2 DC'D INTACT. PT PREVIOUSLY COMPLETED A SAFETY PLAN, COPY SENT WITH PT. EDUCATION OF DEPRESSION AND SUICIDAL THOUGHTS GIVEN TO PT. F/U APPT MADE WITH PCP TOMORROW VIA TELE MEDICINE. RX FAXED TO [facility]. PT DC'D HOME VIA TAXI, ESCORTED OUT VIA W/C AT 1031.
== END 2019-10-15 10:39 | disposition home or self-care (01) | DRG 918 ==
LOC: ER 23:12 → ICUW 23:13 → MEDS 10-13 14:43 → ICUW 10-13 14:43 → MEDS 10-14 17:01
PROVIDERS: Internal Medicine; Physician Assistant; ADMIT Internal Medicine
DX: T45.512A Poisoning by anticoagulants, intentional self-harm, initial encounter (principal); D68.51 Activated protein C resistance; D61.818 Other pancytopenia; F10.129 Alcohol abuse with intoxication, unspecified; G43.909 Migraine, unspecified, not intractable, without status migrainosus; F41.9 Anxiety disorder, unspecified; F32.9 Major depressive disorder, single episode, unspecified; K21.9 Gastro-esophageal reflux disease without esophagitis; G89.4 Chronic pain syndrome; D69.59 Other secondary thrombocytopenia; N76.0 Acute vaginitis; B96.89 Other specified bacterial agents as the cause of diseases classified elsewhere; M54.9 Dorsalgia, unspecified; Z86.711 Personal history of pulmonary embolism; Z98.84 Bariatric surgery status; Z95.0 Presence of cardiac pacemaker; Z86.73 Personal history of transient ischemic attack (TIA), and cerebral infarction without residual deficits; Z78.1 Physical restraint status; Z79.01 Long term (current) use of anticoagulants; Z79.899 Other long term (current) drug therapy
CPT/HCPCS: 36415; 70450; 71045; 80053; 80076; 81001; 81025; 83690; 84484; 85025; 85610; 85730; 87086; 93005; 93010; 96365; 96366; 96374; 96375; 96376; 99285-25; A9270-GY; G0378; G0480; J0132; J0696; J2060; J2405; J7050; J7060; J7070

== ENCOUNTER 2019-10-16 12:33 | Observation (INO) | payer MEDICARE, OTHER ==
[~2019-10-16] VITALS: Ht 165.1 cm; Wt 72.6 kg
[~2019-10-16 12:33] MED LIST changes: +METR500 PO
[2019-10-16 13:23] LABS: BASOPHILS ABSOLUTE AUTO 0.02 K/mm3 (0.00-0.23); BASOPHILS PERCENT AUTO 1 % (0-2); EOSINOPHILS ABSOLUTE AUTO 0.06 K/mm3 (0.00-0.68); EOSINOPHILS PERCENT AUTO 2 % (0-6); Hematocrit 29.4 % (33.0-51.0); Hemoglobin 9.2 g/dL (11.5-16.0); IMMATURE GRAN PERCENT AUTO 0 % (0-1); LYMPHOCYTES ABSOLUTE AUTO 1.64 K/mm3 (0.84-5.20); LYMPHOCYTES PERCENT AUTO 53 % (21-46); MONOCYTES ABSOLUTE AUTO 0.26 K/mm3 (0.16-1.47); MONOCYTES PERCENT AUTO 8 % (4-13); Mean Corpuscular HGB 30.1 pg (26.0-34.0); Mean Corpuscular HGB Conc 31.3 g/dL (31.5-36.5); NEUTROPHILS ABSOLUTE AUTO 1.13 K/mm3 (1.96-9.15); NEUTROPHILS PERCENT AUTO 36 % (41-73); Platelet Count 81 K/mm3 (150-400); RDW Coefficient Variation 19.4 % (11.7-14.2); RDW Standard Deviation 68.9 fL (35.1-46.3); Red Blood Cell Count 3.06 M/mm3 (3.80-5.20); White Blood Cell Count 3.11 K/mm3 (4.00-11.30)
[2019-10-16 13:28] LABS: Mean Corpuscular Volume 96 fL (80-100)
[2019-10-16 13:34] LABS: Alanine Aminotransfer (ALT/SGP 48 U/L (12-78); Albumin, Blood 2.4 g/dL (3.4-5.0); Albumin/Globulin Ratio 0.7 (0.8-1.8); Alk Phos 99 U/L (50-136); Anion Gap 6 mmol/L (6-16); Aspartate Aminotrans (AST/SGOT 83 U/L (12-37); Bilirubin, Total 0.2 mg/dL (0.1-1.0); Blood Urea Nitrogen 9 mg/dL (8-24); Bun/Creatinine Ratio 11.3 (12.0-20.0); CO2, Blood 21 mmol/L (21-32); Calcium, Blood 6.5 mg/dL (8.5-10.1); Chloride, Blood 123 mmol/L (98-108); Ethanol (Alcohol), Blood, Med 326 mg/dL; Globulin, Blood 3.4 g/dL (2.2-4.0); Glomerular Filtration Rate >60 (60-); Glucose, Blood 94 mg/dL (70-99); Potassium, Blood 3.2 mmol/L (3.5-5.5); Sodium, Blood 150 mmol/L (136-145); Total Protein, Blood 5.8 g/dL (6.4-8.2)
== END 2019-10-16 17:11 | disposition home or self-care (01) ==
LOC: ER 12:33 → EOR 12:34
PROVIDERS: ADMIT Emergency Medicine
DX: F10.129 Alcohol abuse with intoxication, unspecified (principal); I10 Essential (primary) hypertension; F32.9 Major depressive disorder, single episode, unspecified; F41.9 Anxiety disorder, unspecified; Y90.8 Blood alcohol level of 240 mg/100 ml or more
CPT/HCPCS: 80053; 85025; 99285; G0480